=== PATIENT | female | born 1990 | race African-American/Black ===

== ENCOUNTER 2017-04-25 21:45 | Emergency (ER) | payer SELFPAY ==
--- NOTE | 2017-04-25 22:16 | ER Document Report ---
HPI - HPI Pain Level: 4 Context: Patient is a 26-year-old female presents emergency department with chief complaint of vaginal discharge and itching. Patient states that she had sexual intercourse 3 days ago with a partner that she has had STDs from before. States that she used [id number] Monistat with no relief. Also states that she had a Lisa placed about a year ago but that in December her OBGYN did not see the strings, started her on Depo and patient never followed up with [employer] [facility] for removal b/c she lost her insurance. Has an appointment with the Health Dept on Tuesday. Due to her depo, denies regular menses - REPRODUCTIVE Reproductive: REPORTS: : - DERM Skin Color: Normal Past Medical History - Social History Smoking Status: Current Every Day Smoker Frequency of alcohol use: None Drug Abuse: None Family History: Reviewed & Not Pertinent Patient has suicidal ideation: No Patient has homicidal ideation: No - Past Medical History Cardiac Medical History: Denies: Hx Hypertension, Hx Heart Murmur Neurological Medical History: Denies: Hx Cerebrovascular Accident, Hx Seizures Renal/ Medical History: Reports: Hx Kidney Stones. Denies: Hx Peritoneal Dialysis Psychiatric Medical History: Reports: Hx Bipolar Disorder Vertical Provider Document - CONSTITUTIONAL Agree With Documented VS: Yes Notes: PHYSICAL EXAM GENERAL: Alert, interacts well. ABDOMEN: Soft, nondistended, nontender. No guarding, rebound, or rigidity.. Bowel sounds present in all 4 quadrants. FEMALE : Normal external exam. No evidence of lesions, lacerations, bruising or vesicles. Speculum exam normal cervix closed. evidence of white/yellow vaginal discharge with odor. No evidence of lesions. No vaginal bleeding. Bimanual exam normal no cervical motion tenderness. No adnexal mass or adnexal tenderness. EXTREMITIES: Moves all 4 extremities spontaneously. No edema, radial and dorsalis pedis pulses 2/4 bilaterally. No cyanosis. NEUROLOGICAL: Alert and oriented x4. Normal speech. PSYCH: Normal affect, normal mood. SKIN: Warm, dry, normal turgor. No rashes or lesions noted. - INFECTION CONTROL TRAVEL OUTSIDE OF THE [place] IN LAST 30 DAYS: No - RESPIRATORY O2 Sat by Pulse Oximetry: 100 Course - Re-evaluation Re-evalutation: 04/25/17 23:45 Patient is a 26-year-old female is hemodynamically stable, no acute distress and afebrile. STD screening said came back positive for evidence of trichomonas without evidence of yeast. Chlamydia gonorrhea pending at this time. Patient electing for prophylactic treatment. Patient educated on barrier protection such as condoms during sexual activity after pelvic rest for about a week. Patient understands and agrees with plan. Will call her if her results are positive for chlamydia and gonorrhea. Otherwise educated patient to follow-up with the health department on Tuesday for referral to [facility] through their program to have her scope removed. At this time I do not suspect any evidence of PID given the patient's physical exam is benign for any cervical motion tenderness, any pelvic tenderness with stable vital signs. - Vital Signs Vital signs: Temp Pulse Resp BP Pulse Ox 98.5 F 73 16 116/67 100 04/25/17 21:52 04/25/17 21:52 04/25/17 21:52 04/25/17 21:52 04/25/17 21:52 Discharge - Discharge Clinical Impression: STD (female), IUD strings lost Condition: Good Disposition: HOME, SELF-CARE Instructions: Trichomonas Infection ([facility]) Additional Instructions: Please follow-up with the health department with your scheduled appointment on Tuesday regarding today's visit and visualization of your Mario. We were not able to remove it in the ER today. He can follow-up with the health department who may be able to refer you to [facility] with assistance to help have it removed. Referrals: [facility] DEPT,[facility] [NO LOCAL MD] - 04/29/17
[2017-04-25 22:34] LABS: APPEARANCE,URINE SLIGHTLY-CLOUDY; BILIRUBIN,URINE NEGATIVE (NEGATIVE); COLOR,URINE YELLOW; GLUCOSE, URINE NEGATIVE (NEGATIVE); KETONES,URINE NEGATIVE (NEGATIVE); LEUKOCYTE ESTERASE,URINE LARGE (NEGATIVE); NITRITE,URINE NEGATIVE (NEGATIVE); PROTEIN,URINE NEGATIVE (NEGATIVE); URINE SPECIFIC GRAVITY 1.019
[2017-04-25 22:56] LABS: BACTERIA (WET MOUNT) 3+ BACTERIA SEEN; T.VAGINALIS (WET MOUNT) TRICHOMONAS SEEN; WBCS (WET MOUNT) 3+ WBCS SEEN; YEAST (WET MOUNT) NO YEAST SEEN
[2017-04-25] MEDS ORDERED: LIDOCAINE 1% INJ-PF (10 MG/ML) 30 ML SDV INJ ONE (23:28)
[2017-04-25] MEDS ORDERED: AZITHROMYCIN 250 MG TABLET PO ONE (23:28)
[2017-04-25] MEDS ORDERED: CEFTRIAXONE INJ 250 MG VIAL IM ONE (23:28)
[2017-04-25] MEDS ORDERED: METRONIDAZOLE 500 MG TABLET PO ONE (23:28)
--- NOTE | 2017-04-26 00:01 | RADIOLOGY REPORT (SQ) ---
EXAM DESCRIPTION: PELVIS AP CLINICAL HISTORY: 26 years, Female, unknown location of IUD COMPARISON: None. NUMBER OF VIEWS: 1 LIMITATIONS: None. FINDINGS: IUD at the mid pelvis. Else, unremarkable. Bony structures appear intact. IMPRESSION: No acute findings. IUD.
[2017-04-26 00:11] VITALS: BP 121/74
[2017-04-26 00:28] LABS: CHLAM PCR NOT DETECTED (NOT DETECT); GON PCR NOT DETECTED (NOT DETECT)
== END 2017-04-26 00:09 | disposition home or self-care (01) ==
LOC: ER 21:45
DX: A59.00 Urogenital trichomoniasis, unspecified (principal); T83.32XA Displacement of intrauterine contraceptive device, initial encounter; X58.XXXA Exposure to other specified factors, initial encounter; F17.200 Nicotine dependence, unspecified, uncomplicated
CPT/HCPCS: 99284; 96372; 87210; 81025; 81001; 87491; 87591; 72170; J3490; J0696

== ENCOUNTER 2017-06-11 19:33 | Emergency (ER) | payer SELFPAY ==
[2017-06-11 19:38] VITALS: BP 109/66
[2017-06-11 20:28] LABS: COLOR,URINE YELLOW
[2017-06-11 20:29] LABS: APPEARANCE,URINE HAZY; BILIRUBIN,URINE NEGATIVE (NEGATIVE); GLUCOSE, URINE NEGATIVE (NEGATIVE); KETONES,URINE NEGATIVE (NEGATIVE); URINE SPECIFIC GRAVITY 1.027
[2017-06-11 20:30] LABS: LEUKOCYTE ESTERASE,URINE LARGE (NEGATIVE); NITRITE,URINE NEGATIVE (NEGATIVE); PROTEIN,URINE 30 mg/dL (NEGATIVE)
--- NOTE | 2017-06-11 20:57 | ER Document Report ---
ED General - General Chief Complaint: Abdominal Pain Stated Complaint: ABDOMINAL PAIN Time Seen by Provider: 06/11/17 19:48 Notes: Patient is a 26-year-old female without past medical history who presents with going intermittent lower abdominal cramping and concerned that her IUD is unable to be retrieved. Patient states that back in December, her TORPEDO WORKER evaluated this complaint and was unable to locate the strings from her IUD. She was instructed that she would need to have a procedure to have the IUD removed but lost her insurance and was unable to follow-up. She has since that time continued to have intermittent, cramping, mild to moderate pain in her lower abdomen that comes and goes. Nothing improves or worsens this pain. She denies any fever, vaginal discharge, vaginal bleeding, or any other symptoms that are worrisome to her. Nothing is new or different about her symptoms today relative to the past 4-5 months. She was seen in the emergency department in April for the same, referred back to the health department and did not complete her follow-up. TRAVEL OUTSIDE OF THE [place] IN LAST 30 DAYS: No - Related Data Allergies/Adverse Reactions: No Known Allergies Allergy (Unverified 06/30/15 10:48) Past Medical History - General Information source: Patient - Social History Smoking Status: Never Smoker Frequency of alcohol use: None Drug Abuse: None Lives with: Family Family History: Reviewed & Not Pertinent - Past Medical History Cardiac Medical History: Denies: Hx Hypertension, Hx Heart Murmur Neurological Medical History: Denies: Hx Cerebrovascular Accident, Hx Seizures Renal/ Medical History: Reports: Hx Kidney Stones. Denies: Hx Peritoneal Dialysis Psychiatric Medical History: Reports: Hx Bipolar Disorder Review of Systems - Review of Systems Notes: Constitutional: Negative for fever. HENT: Negative for sore throat. Eyes: Negative for visual changes. Cardiovascular: Negative for chest pain. Respiratory: Negative for shortness of breath. Gastrointestinal: Positive for abdominal pain Genitourinary: Negative for dysuria. Musculoskeletal: Negative for back pain. Skin: Negative for rash. Neurological: Negative for headaches, weakness or numbness. 10 point ROS negative except as marked above and in HPI. Physical Exam - Vital signs Vitals: Temp Pulse Resp BP Pulse Ox 98.5 F 108 H 16 109/66 97 06/11/17 19:37 06/11/17 19:37 06/11/17 19:37 06/11/17 19:37 06/11/17 19:37 Interpretation: Normal Notes: PHYSICAL EXAMINATION: GENERAL: Well-appearing, well-nourished and in no acute distress. HEAD: Atraumatic, normocephalic. EYES: Pupils equal round and reactive to light, extraocular movements intact, sclera anicteric, conjunctiva are normal. ENT: nares patent, oropharynx clear without exudates. Moist mucous membranes. NECK: Normal range of motion, supple without lymphadenopathy LUNGS: Breath sounds clear to auscultation bilaterally and equal. No wheezes rales or rhonchi. HEART: Regular rate and rhythm without murmurs ABDOMEN: Soft, nontender, normoactive bowel sounds. No guarding, no rebound. No masses appreciated. EXTREMITIES: Normal range of motion, no pitting or edema. No cyanosis. NEUROLOGICAL: No focal neurological deficits. Moves all extremities spontaneously and on command. PSYCH: Normal mood, normal affect. SKIN: Warm, Dry, normal turgor, no rashes or lesions noted. Course - Re-evaluation Re-evalutation: 06/11/17 20:54 Patient presents with persistent concerns about a IUD which the strings have been unable to be located with for the past 6 months. The patient reports that no provider including her original TORPEDO WORKER has been able to locate the strings or the IUD since December 2016. She presents with concerns that she is continues to have intermittent lower abdominal cramping unchanged over the last 4-5 months. She denies any additional symptoms. She is sleeping when I walked into the room. She has no abdominal tenderness on palpation of her abdomen. Urinalysis unremarkable, she is not . Clinical history and exam are not consistent with pelvic inflammatory disease, acute appendicitis, or any other concerning pathology. She has declined pelvic examination at this time which I think is appropriate given that nothing is new or different today from the past several months. I have again emphasized the patient that she needs to follow-up as directed for definitive management of this issue with TORPEDO WORKER. KUB does verify that the IUD continues to be in the uterus. At this time will discharge with return precautions and follow-up recommendations. Verbal discharge instructions given a the bedside and opportunity for questions given. Medication warnings reviewed. Patient is in agreement with this plan and has verbalized understanding of return precautions and the need for primary care follow-up in the next 24-72 hours. - Vital Signs Vital signs: Temp Pulse Resp BP Pulse Ox 98.5 F 108 H 16 109/66 97 06/11/17 19:37 06/11/17 19:37 06/11/17 19:37 06/11/17 19:37 06/11/17 19:37 - Laboratory Laboratory results interpreted by me: 06/11/17 19:55 Urine Protein 30 H Urine Urobilinogen 8.0 H Ur Leukocyte Esterase LARGE H - Diagnostic Test Radiology reviewed: Image reviewed, Reports reviewed Radiology results interpreted by me: 06/11/17 20:58 KUB: IUD inside the uterus Discharge - Discharge Clinical Impression: Lower abdominal pain IUD migration Qualifiers: Encounter type: initial encounter Qualified Code(s): T83.89XA - Other specified complication of genitourinary prosthetic devices, implants and grafts , initial encounter Condition: Good Disposition: HOME, SELF-CARE Additional Instructions: You do need to follow-up with TORPED[employer] WORKER as your IUD has migrated and this has been a long-standing issue since December where the strings have been unable to be identified on your previous pelvic examinations. There is no emergency department solution to this problem as you may need to have a cervical dilation in the operating room to remove this device. For your pain: Take ibuprofen 600 mg and acetaminophen 1000 mg every 6 hours together as needed for pain. Return if you have for heavy vaginal bleeding, persistent vomiting, worsening pain, fever greater than 100.4F, or any other symptoms that are worrisome to you. Referrals: MILAN MUNOZ MD [ACTIVE STAFF] - Follow up in 3-5 days
--- NOTE | 2017-06-11 21:16 | RADIOLOGY REPORT (SQ) ---
EXAM DESCRIPTION: KUB/ABDOMEN (SINGLE VIEW) COMPLETED DATE/TIME: 06/11/2017 9:02 pm REASON FOR STUDY: eval iud location COMPARISON: None. NUMBER OF VIEWS: One view. TECHNIQUE: Supine radiographic image of the abdomen acquired. LIMITATIONS: None. FINDINGS: BOWEL GAS PATTERN: Normal bowel gas pattern. No dilated loops. CALCIFICATIONS: No suspicious calcifications. SOFT TISSUES: No gross mass or suggestion of organomegaly. An apparent intrauterine device projects within the soft tissues of the bony pelvis. HARDWARE: None in the abdomen. BONES: No acute fracture. No worrisome bone lesions. OTHER: No other significant finding. IMPRESSION: Intrauterine device projects within the soft tissues of the bony pelvis. TECHNICAL DOCUMENTATION: JOB ID: [id number] [employer]- All Rights Reserved Reading location - IP/workstation name: [email or web address]
== END 2017-06-11 21:12 | disposition home or self-care (01) ==
LOC: ER 19:33
DX: T83.89XA Other specified complication of genitourinary prosthetic devices, implants and grafts, initial encounter (principal); R10.30 Lower abdominal pain, unspecified; Y76.8 Miscellaneous obstetric and gynecological devices associated with adverse incidents, not elsewhere classified; Z87.442 Personal history of urinary calculi
CPT/HCPCS: 74018; 81001; 81025; 99284

== ENCOUNTER 2017-07-03 23:22 | Emergency (ER) | payer SELFPAY ==
[2017-07-03 23:54] VITALS: BP 119/78
--- NOTE | 2017-07-04 00:15 | RADIOLOGY REPORT (SQ) ---
EXAM DESCRIPTION: ANKLE RIGHT COMPLETE CLINICAL HISTORY: fell and thinks she sprained ankle COMPARISON: None. FINDINGS: 3 views of the right ankle. No acute fracture or dislocation. Normal osseous mineralization. Tibial plafond and talar dome have normal alignment. Base of the fifth metatarsal is intact. Mild lateral soft tissue edema. IMPRESSION: No acute fracture or dislocation.
--- NOTE | 2017-07-04 00:31 | ER Document Report ---
ED Extremity Problem, Lower - General Mode of Arrival: Ambulatory Information source: Patient TRAVEL OUTSIDE OF THE [place] IN LAST 30 DAYS: No - General Chief Complaint: Ankle Pain Stated Complaint: ANKLE INJURY Time Seen by Provider: 07/04/17 00:15 Notes: Patient is a 26 year old female that presents to the emergency department today with complaints of right ankle pain. Patient states she fell down some stairs which caused the pain. Patient states she tried to go to work today however she works at [email or web address] and she is on her feet all day and she was unable to stand without pain so her risk and insurance manager sent her home. (BERNA DRIVER) - Related Data Allergies/Adverse Reactions: No Known Allergies Allergy (Unverified 06/30/15 10:48) Past Medical History - General Information source: Patient - Social History Smoking Status: Unknown if Ever Smoked Chew tobacco use (# tins/day): No Frequency of alcohol use: Rare Drug Abuse: None Lives with: Family Family History: Reviewed & Not Pertinent Patient has suicidal ideation: No Patient has homicidal ideation: No Renal/ Medical History: Reports: Hx Kidney Stones Psychiatric Medical History: Reports: Hx Bipolar Disorder Surgical Hx: Negative Review of Systems - Review of Systems Constitutional: No symptoms reported EENT: No symptoms reported Cardiovascular: No symptoms reported Respiratory: No symptoms reported Gastrointestinal: No symptoms reported Genitourinary: No symptoms reported Female Genitourinary: No symptoms reported Musculoskeletal: See HPI, Joint pain - right ankle Skin: No symptoms reported Hematologic/Lymphatic: No symptoms reported Neurological/Psychological: No symptoms reported -: Yes All other systems reviewed and negative Physical Exam - Vital signs Vitals: Temp Pulse Resp BP Pulse Ox 98.1 F 88 16 119/78 100 07/03/17 23:53 07/03/17 23:53 07/03/17 23:53 07/03/17 23:53 07/03/17 23:53 - Notes Notes: Physical Exam: General: Alert, appears well. HEENT: Normocephalic. Atraumatic. PERRL. Extraocular movements intact. Oropharynx clear. Neck: Supple. Non-tender. Respiratory: No respiratory distress. Clear and equal breath sounds bilaterally. Cardiovascular: Regular rate and rhythm. Abdominal: Normal Inspection. Non-tender. No distension. Normal Bowel Sounds. Back: Non-tender. No deformity or step off. Extremities: Moves all four extremities. Upper extremities: Normal inspection. Normal ROM. Lower extremities: Swelling and tenderness with palpation over right lateral malleolus. 2+ DP pulses bilaterally. Neurological: Normal cognition. AAOx4. Normal speech. Psychological: Normal affect. Normal Mood. Skin: Warm. Dry. Normal color. (BERNA DRIVER) Course - Re-evaluation Re-evalutation: 07/04/17 00:33 No evidence of fracture or dislocation on x-ray. Patient will be provided anti- inflammatories and follow-up with her primary care physician in the next 2 weeks for reevaluation if symptoms are not improving (MARTINE SON) - Vital Signs Vital signs: Temp Pulse Resp BP Pulse Ox 98.1 F 88 16 119/78 100 07/03/17 23:53 07/03/17 23:53 07/03/17 23:53 07/03/17 23:53 07/03/17 23:53 Discharge - Discharge Clinical Impression: Ankle sprain Qualifiers: Encounter type: initial encounter Involved ligament of ankle: other ligament Laterality: right Qualified Code(s): S93.491A - Sprain of other ligament of right ankle, initial encounter Disposition: HOME, SELF-CARE Instructions: Enoch Wrap ([facility]), Ice & Elevation ([facility]), Sprained Ankle ([facility]) Prescriptions: Naproxen [Naprosyn] 500 mg PO BID #20 tablet Forms: Return to Work Scribe Attestation: 07/11/17 08:01 I personally performed the services described in the documentation, reviewed and edited the documentation which was dictated to the scribe in my presence, and it accurately records my words and actions. (MARTINE SON) Scribe Documentation - Scribe Written by Scribe:: Montana Gomez, [id number] acting as scribe for :: Colt
[2017-07-04] MEDS ORDERED: KETOROLAC TROMETHAMINE 60 MG/2 ML SDV IM ONE (00:36)
== END 2017-07-04 01:14 | disposition home or self-care (01) ==
LOC: ER 23:22
DX: S93.401A Sprain of unspecified ligament of right ankle, initial encounter (principal); W10.9XXA Fall (on) (from) unspecified stairs and steps, initial encounter
CPT/HCPCS: 99283; 96372; 73610; J1885

== ENCOUNTER 2017-08-03 16:30 | Emergency (ER) | payer SELFPAY ==
[2017-08-03 16:50] VITALS: BP 109/67
--- NOTE | 2017-08-03 18:26 | ER Document Report ---
ED Extremity Problem, Lower - General Chief Complaint: Ankle Injury Stated Complaint: ANKLE INJURY Time Seen by Provider: 08/03/17 17:53 Mode of Arrival: Ambulatory Information source: Patient Notes: 26-year-old female presents to ED for complaint of pain to her right ankle for the last week. She states that she sprained her ankle 3 or 4 weeks ago and was seen in the emergency room they wrapped her ankle started to elevate and ice of them follow-up with orthopedics but she was not able to follow-up with orthopedics because she does not have insurance. She states that she could not keep her foot elevated iced or wrapped because the wrapping made it uncomfortable while she worked so she took the wrapping off. She states a week ago 1 of her coworkers stepped on her ankle again now the pain is worse. She is alert and oriented, pupils equal and react to light, speaking in full sentences, respirations regular and unlabored. TRAVEL OUTSIDE OF THE [place] IN LAST 30 DAYS: No - HPI Patient complains to provider of: Injury, Pain Location: Ankle - right Occurred: Other - 3 or 4 weeks ago and then again a week ago Onset/Duration: Gradual Quality of pain: Achy, Throbbing Severity: Moderate Pain Level: 3 Context: Wearing shoes Recent injury: Yes Associated symptoms: Painful ambulation Exacerbated by: Hanging down, Movement, Walking Relieved by: Elevation, Ice, Rest - Related Data Allergies/Adverse Reactions: No Known Allergies Allergy (Verified 08/03/17 16:40) Past Medical History - General Information source: Patient - Social History Smoking Status: Current Every Day Smoker Cigarette use (# per day): Yes - 3-4 cigarettes a day Chew tobacco use (# tins/day): No Smoking Education Provided: Yes - 4 minutes Frequency of alcohol use: Occasional Drug Abuse: None Occupation: [employer] Lives with: Family Family History: Reviewed & Not Pertinent Patient has suicidal ideation: No Patient has homicidal ideation: No - Past Medical History Cardiac Medical History: Reports: None Pulmonary Medical History: Reports: None EENT Medical History: Reports: None Neurological Medical History: Reports: None Endocrine Medical History: Reports: None Renal/ Medical History: Reports: Hx Kidney Stones Malignancy Medical History: Reports: None GI Medical History: Reports: None Musculoskeltal Medical History: Reports Hx Musculoskeletal Trauma Skin Medical History: Reports None Psychiatric Medical History: Reports: Hx Bipolar Disorder Traumatic Medical History: Reports: None Infectious Medical History: Reports: None Surgical Hx: Negative Past Surgical History: Reports: None Review of Systems - Review of Systems Constitutional: No symptoms reported EENT: No symptoms reported Cardiovascular: No symptoms reported Respiratory: No symptoms reported Gastrointestinal: No symptoms reported Genitourinary: No symptoms reported Female Genitourinary: No symptoms reported Musculoskeletal: Ankle swelling - Pain Skin: No symptoms reported Hematologic/Lymphatic: No symptoms reported Neurological/Psychological: No symptoms reported -: Yes All other systems reviewed and negative Physical Exam - Vital signs Vitals: Temp Resp BP 99.1 F 18 109/67 08/03/17 16:48 08/03/17 16:48 08/03/17 16:48 Interpretation: Normal - General General appearance: Appears well, Alert - HEENT Head: Normocephalic, Atraumatic Eyes: Normal Pupils: PERRL - Respiratory Respiratory status: No respiratory distress Chest status: Nontender Breath sounds: Normal Chest palpation: Normal - Cardiovascular Rhythm: Regular Heart sounds: Normal auscultation Murmur: No - Abdominal Inspection: Normal Distension: No distension Bowel sounds: Normal Tenderness: Nontender Organomegaly: No organomegaly - Back Back: Normal, Nontender - Extremities General upper extremity: Normal inspection, Nontender, Normal color, Normal ROM , Normal temperature General lower extremity: Normal inspection, Normal color, Normal temperature. No: Miky's sign Ankle: Tender, Limited ROM - To pain. No: Abrasion, Deformity, Ecchymosis, Edema, Instability, Laceration, Positive Pagan's test, Unable to bear weight Foot: Tender, Metatarsal compress. pain, No evidence of FB. No: Abrasion, Deformity, Ecchymosis, Edema, Instability, Laceration, Nail injury, Navicular tenderness, Tender 5th metatarsal, Unable to bear weight - Neurological Neuro grossly intact: Yes Cognition: Normal Orientation: AAOx4 Kartik Coma Scale Eye Opening: Spontaneous [place] Coma Scale Verbal: Oriented [place] Coma Scale Motor: Obeys Commands Kartik Coma Scale Total: 15 Speech: Normal Motor strength normal: LUE, RUE, LLE, RLE Sensory: Normal - Psychological Associated symptoms: Normal affect, Normal mood - Skin Skin Temperature: Warm Skin Moisture: Dry Skin Color: Normal Course - Re-evaluation Re-evalutation: 08/03/17 19:19 Patient treated with Enoch wrap and crutches. Patient instructed to follow-up with orthopedics. There are no bony changes to the ankle. There is minimal swelling and no bruising noted. Patient did have tenderness. The patient is nontoxic appearing with stable vitals. They are afebrile. Ankle exam shows no deformities with no obvious ligament instability. There is a normal pulse and sensation distally. There is no redness or signs of infection. X-rays show no acute fracture per the radiologist. Patient will be placed in an Enoch wrap for comfort. Crutches will be offered and given if requested. Patient will be instructed to follow-up with not better in 1 week, sooner for increasing pain, fever, redness, numbness, tingling, weakness, any further concerns. Patient will be instructed to rest, ice, elevate their ankle. - Vital Signs Vital signs: Temp Pulse Resp BP Pulse Ox 99.1 F 18 109/67 08/03/17 16:48 08/03/17 16:48 08/03/17 16:48 - Diagnostic Test Radiology reviewed: Image reviewed, Reports reviewed Procedures - Immobilization Right Ankle Time completed: 19:19 Pre-Proc Neuro Vasc Exam: Normal Immobilizer type: Enoch wrap, Crutches Performed by: RN Post-Proc Neuro Vasc Exam: Normal Alignment checked and good: Yes Discharge - Discharge Clinical Impression: Contusion of right ankle Qualifiers: Encounter type: initial encounter Qualified Code(s): S90.01XA - Contusion of right ankle, initial encounter Condition: Stable Disposition: HOME, SELF-CARE Instructions: Use of Ducc-Jsz-Jlctyqi Ibuprofen ([facility]) Additional Instructions: CONTUSION: Your injury has resulted in a contusion -- a crushing of the deep tissues. No injury to important structures was detected during the physician's exam. Contusions vary in the amount of pain they cause, and in the length of time required for healing. Typically, the area will become bruised, and will remain painful to touch for two or three weeks. However, most patients are back to working and playing within a few days. After the initial period of rest and cold-packs, your symptoms (together with the doctor's recommendations) will determine how rapidly you can get back to full activity. Usually this means "do what feels okay, but don't do things that hurt." If re-examination was recommended, it's important to follow up as instructed. Call the doctor or return any time if pain increases, if swelling becomes severe, if you develop numbness or weakness in an injured extremity, or if any other alarming symptoms occur. ENOCH WRAP: A compression dressing (enoch wrap) has been placed. This helps hold the area still. It limits swelling and internal bleeding. The wrap should be comfortably snug -- not tight. You should feel a sense of pressure, but not severe pain under the wrap. Unless the physician tells you otherwise, you can adjust the wrap for comfort. If the wrap causes symptoms suggesting it's too tight -- uncomfortable pressure, swelling or discoloration beyond the wrap, numbness, or severe pain - - you must loosen the wrap. If these symptoms don't resolve promptly, return for re-evaluation. ICE & ELEVATION: Apply ice packs frequently against the painful area. Many different schedules are recommended, such as "20 minutes on, 20 minutes off" or "one hour ice, two hours rest." If you need to work, you may need to go longer between ice treatments. You should plan to have the area ice packed AT LEAST one- fourth of the time. The ice should be applied over the wrap, tape, or splint, or over a layer of cloth -- not directly against the skin. Some ice bags have a built-in cloth and can be put directly on the skin. Your injured part should be elevated as much as possible over the next 48 hours. Try to keep the injury above the level of the heart. Avoid use of the injured area. Elevation and rest will decrease the swelling. USE OF NUDU-FZK-QODDIUP IBUPROFEN: Ibuprofen (Advil, Nuprin, Medipren, Motrin IB) is a medication for fever and pain control. In addition, it has anti- inflammatory effects which may be beneficial, especially in the treatment of injuries. It's best to take ibuprofen with food. Persons with ulcer disease or allergy to aspirin should notify their physician of this before taking ibuprofen. Ibuprofen can be given every four to six hours, for a total of four doses daily. Age Pain or fever dose Antiinflammatory dose 6-8 yr 200 mg (1 tab) 200 mg (1 tab) 9-11 yr 200 mg (1 tab) 200-400 mg (1-2 tab) 11-14 yr 200-400 mg (1-2 tab) 400 mg (2 tab) 15-adult 400 mg (2 tab) 600 mg (3 tab) FOLLOW-UP CARE: If you have been referred to a physician for follow-up care, call the physician s office for an appointment as you were instructed or within the next two days. If you experience worsening or a significant change in your symptoms, notify the physician immediately or return to the Emergency Department at any time for re-evaluation. Forms: Special Work Note, Smoking Cessation Education, Return to Work Referrals: CAITLIN SANCHEZ MD [ACTIVE STAFF] - Follow up as needed
--- NOTE | 2017-08-03 18:45 | RADIOLOGY REPORT (SQ) ---
EXAM DESCRIPTION: ANKLE RIGHT COMPLETE COMPLETED DATE/TIME: 08/03/2017 6:06 pm REASON FOR STUDY: pain and injury COMPARISON: 07/04/2017 NUMBER OF VIEWS: Three views. TECHNIQUE: AP, lateral, and oblique radiographic images acquired of the right ankle. LIMITATIONS: None. FINDINGS: MINERALIZATION: Normal. BONES: No acute fracture or dislocation. No worrisome bone lesions. JOINTS: No effusions. SOFT TISSUES: No soft tissue swelling. No foreign body. OTHER: No other significant finding. IMPRESSION: NEGATIVE STUDY OF THE RIGHT ANKLE. NO RADIOGRAPHIC EVIDENCE OF ACUTE INJURY. TECHNICAL DOCUMENTATION: JOB ID: [id number] [employer]- All Rights Reserved Reading location - IP/workstation name: [email or web address]
== END 2017-08-03 19:33 | disposition home or self-care (01) ==
LOC: ER 16:30
DX: S90.01XA Contusion of right ankle, initial encounter (principal); M25.571 Pain in right ankle and joints of right foot; W51.XXXA Accidental striking against or bumped into by another person, initial encounter; F17.210 Nicotine dependence, cigarettes, uncomplicated
CPT/HCPCS: 99283

== ENCOUNTER 2017-11-04 12:21 | Emergency (ER) | payer SELFPAY ==
[2017-11-04 12:29] VITALS: BP 110/69
[2017-11-04] MEDS ORDERED: IPRATROPIUM/ALBUTEROL 0.5-2.5 MG/3 ML AMPUL NEB ONE (12:59)
[2017-11-04] MEDS ORDERED: PREDNISONE 20 MG TABLET PO ONE (12:59)
--- NOTE | 2017-11-04 13:00 | ER Document Report ---
HPI - HPI Patient complains to provider of: Cough Onset: Other - 5 days Onset/Duration: Persistent Quality of pain: Achy Pain Level: 4 Context: Patient presents complaining of cough and congestion for the past 5 days. Patient denies any fever. Patient has had some wheezing. Patient does report cutting back on smoking recently. Associated Symptoms: Nonproductive cough, Rhinnorhea, Sinus pain/drainage. denies: Fever, Vomiting Exacerbated by: Denies Relieved by: Denies Similar symptoms previously: Yes Recently seen / treated by doctor: No - ROS ROS below otherwise negative: Yes Systems Reviewed and Negative: Yes All other systems reviewed and negative - CONSTITUTIONAL Constitutional: REPORTS: Chills. DENIES: Fever - EENT EENT: REPORTS: Sore Throat - x5 days. DENIES: Ear Pain, Eye problems - NEURO Neurology: REPORTS: Headache. DENIES: Vision blurred, Dizzinesss / Vertigo - CARDIOVASCULAR Cardiovascular: REPORTS: Chest pain - when coughing - RESPIRATORY Respiratory: REPORTS: Coughing. DENIES: Trouble Breathing - GASTROINTESTINAL Gastrointestinal: DENIES: Abdominal Pain, Patient vomiting, Black / Bloody Stools - REPRODUCTIVE Reproductive: DENIES: : - MUSCULOSKELETAL Musculoskeletal: DENIES: Extremity pain - DERM Skin Color: Normal Skin Problems: None Past Medical History - General Information source: Patient - Social History Smoking Status: Current Every Day Smoker Smoking Education Provided: Yes Frequency of alcohol use: None Drug Abuse: None Occupation: Foodservice Family History: Reviewed & Not Pertinent Patient has suicidal ideation: No Patient has homicidal ideation: No - Past Medical History Cardiac Medical History: Denies: Hx Hypertension, Hx Heart Murmur Neurological Medical History: Denies: Hx Cerebrovascular Accident, Hx Seizures Renal/ Medical History: Reports: Hx Kidney Stones. Denies: Hx Peritoneal Dialysis Musculoskeletal Medical History: Reports Hx Musculoskeletal Trauma Psychiatric Medical History: Reports: Hx Bipolar Disorder Surgical Hx: Negative Past Surgical History: Denies: Hx Abdominal Surgery Vertical Provider Document - CONSTITUTIONAL Agree With Documented VS: Yes Exam Limitations: No Limitations General Appearance: WD/WN, No Apparent Distress - INFECTION CONTROL TRAVEL OUTSIDE OF THE [place] IN LAST 30 DAYS: No - HEENT HEENT: Atraumatic, Normocephalic, Pharyngeal Tenderness. negative: Pharyngeal Exudate, Pharyngeal Erythema - NECK Neck: Normal Inspection, Supple. negative: Lymphadenopathy-Left, Lymphadenopathy-Right - RESPIRATORY Respiratory: No Respiratory Distress, Rhonchi, Wheezing - CARDIOVASCULAR Cardiovascular: Regular Rate, Regular Rhythm, No Murmur - BACK Back: Normal Inspection - MUSCULOSKELETAL/EXTREMETIES Musculoskeletal/Extremeties: MAEW - NEURO Level of Consciousness: Awake, Alert, Appropriate Motor/Sensory: No Motor Deficit - DERM Integumentary: Warm, Dry, No Rash Course - Re-evaluation Re-evalutation: 11/04/17 14:02 Patient with good air movement. Scattered wheezing continues. Patient encouraged to refrain from smoking. No concern for pneumonia. Patient nontoxic in appearance. Discussed worsening symptoms that patient should return mainly for. Patient verbalized understanding agrees with plan of care. - Vital Signs Vital signs: Temp Pulse Resp BP Pulse Ox 98.7 F 78 18 110/69 99 11/04/17 12:27 11/04/17 12:27 11/04/17 12:27 11/04/17 12:27 11/04/17 12:27 - Diagnostic Test Radiology reviewed: Reports reviewed Discharge - Discharge Clinical Impression: Wheezing Upper respiratory infection Qualifiers: URI type: unspecified URI Qualified Code(s): J06.9 - Acute upper respiratory infection, unspecified Condition: Stable Disposition: HOME, SELF-CARE Additional Instructions: Return immediately for any new or worsening symptoms Followup with your primary care provider, call tomorrow to make a followup appointment UPPER RESPIRATORY ILLNESS: You have a viral infection of the respiratory passages -- a "cold." This common infection causes nasal congestion, drainage, and often sore throat and cough. It is highly contagious. The disease usually lasts about 10 to 14 days. There is no "cure" for the viral infection -- it must run its course. If there is a complication, such as bacterial infection in the nose, sinuses, middle ear, or bronchial tubes, antibiotics may be required. The antibiotics won't affect the virus. Drink plenty of fluids. A humidifier may help. An expectorant medication or decongestant may make you more comfortable. Use acetaminophen or ibuprofen for fever or aches. See the doctor if fever persists over two days, if there is any significant worsening of your symptoms, or if you simply fail to improve as expected. BRONCHOSPASM: You have tightness in the bronchial tubes, called bronchospasm. This often occurs with bronchial infections. Allergies, inhaled chemicals, and polluted or cold air can also provoke bronchospasm. It's more likely in patients with asthma in the family. Emergency treatment of bronchospasm may include adrenaline shots or bronchodilator aerosol. You may feel lightheaded and have a rapid pulse for an hour or two. Rest and get plenty of fluids. At home, we'll treat you with a bronchodilator inhaler. Antibiotics and corticosteroids may be required for some patients. Until you recover, avoid chemical fumes, dusts, pollens, and exercising in very cold or dry air. If you smoke, stop now!! If you develop a fever, increased wheezing, chest pain, or severe shortness of breath, you should contact the doctor immediately. INHALED BRONCHODILATORS: You have received a treatment of and/or prescription for an inhaled bronchodilator -- a medication which stimulates the airways in the lung to dilate. This improves the flow of air in asthma, bronchitis, and emphysema. These medicines have some similarity to adrenaline, and can cause similar side effects: shakiness, racing heart, and a sense of nervousness. These side effects decrease with time. Contact your doctor if these side effects are severe. Do not over-use the medicine. Too-frequent use of the inhaler may make it ineffective. Call your doctor if the inhaler is not controlling your symptoms at the prescribed doses. STEROID MEDICATION: You have been given an injection of or oral medicine of the cortisone/ steroid class. This medication is used to control inflammation or allergy. Baldo t is usually only given for a short period of time, until the acute process subsides. There are usually no side effects from short-term use of cortisone-like medications. Some persons feel an increased sense of well-being and are not sleepy at bedtime. Long-term use of cortisone medications is best avoided, unless required for a severe condition. If your condition does not remit, or relapses after the course of corticosteroid medication, you should consult your physician. USE OF ACETAMINOPHEN (Tylenol): Acetaminophen may be taken for pain relief or fever control. It's much safer than aspirin, offering a wider range of "safe" dosages. It is safe during . Some brand names are Tylenol, Panadol, Datril, Anacin 3, Tempra, and Liquiprin. Acetaminophen can be repeated every four hours. The following are maximum recommended dosages: >89 pounds or adults 650 mg to 900 mg Acetaminophen can be repeated every four hours. Maximum dose not to exceed 4000 mg a day. SMOKING: If you smoke, you should stop smoking. The tar and chemicals in cigarette smoke are harmful. Smoking has been shown to cause: emphysema chronic bronchitis lung cancer mouth and throat cancer stomach and pancreas cancer premature aging defects In addition, smoking increases ear and lung infections in children of smokers. FOLLOW-UP CARE: If you have been referred to a physician for follow-up care, call the physician s office for an appointment as you were instructed or within the next two days. If you experience worsening or a significant change in your symptoms, notify the physician immediately or return to the Emergency Department at any time for re-evaluation. Prescriptions: Albuterol Sulfate [Ventolin Hfa] 2 puff IH Q4HP PRN #17 gm PRN Reason: Prednisone [Deltasone 20 mg Tablet] 3 tab PO DAILY 4 Days tablet Forms: Smoking Cessation Education Referrals: [facility] [Provider Group] - Follow up as needed [facility] [Provider Group] - Follow up as needed
--- NOTE | 2017-11-04 13:31 | RADIOLOGY REPORT (SQ) ---
EXAM DESCRIPTION: CHEST 2 VIEWS COMPLETED DATE/TIME: 11/04/2017 1:12 pm REASON FOR STUDY: cough COMPARISON: None. EXAM PARAMETERS: NUMBER OF VIEWS: two views TECHNIQUE: Digital Frontal and Lateral radiographic views of the chest acquired. RADIATION DOSE: NA LIMITATIONS: none FINDINGS: LUNGS AND PLEURA: No opacities, masses or pneumothorax. No pleural effusion. MEDIASTINUM AND HILAR STRUCTURES: No masses or contour abnormalities. HEART AND VASCULAR STRUCTURES: Heart normal size. No evidence for failure. BONES: No acute findings. HARDWARE: None in the chest. OTHER: No other significant finding. IMPRESSION: NO ACUTE RADIOGRAPHIC FINDING IN THE CHEST. TECHNICAL DOCUMENTATION: JOB ID: [id number] [employer]- All Rights Reserved Reading location - IP/workstation name: [email or web address]
[2017-11-04] MEDS ORDERED: ALBUTEROL SULFATE 0.083% NEB 2.5 MG/3 ML AMPUL NEB ONE (14:02)
== END 2017-11-04 14:10 | disposition home or self-care (01) ==
LOC: ER 12:21
DX: J06.9 Acute upper respiratory infection, unspecified (principal); R05 Cough; R06.2 Wheezing; J34.89 Other specified disorders of nose and nasal sinuses; R68.83 Chills (without fever); R51 Headache; J02.9 Acute pharyngitis, unspecified; F17.200 Nicotine dependence, unspecified, uncomplicated
CPT/HCPCS: 94640 ×2; 99283; 71046; J7512; J7620

== ENCOUNTER 2018-03-27 10:17 | Emergency (ER) | payer SELFPAY ==
[2018-03-27 10:25] VITALS: BP 104/60
[2018-03-27] MEDS ORDERED: PREDNISONE 20 MG TABLET PO ONE (10:58)
[2018-03-27] MEDS ORDERED: LIDOCAINE 1% INJ-PF (10 MG/ML) 30 ML SDV INJ ONE (10:58)
[2018-03-27] MEDS ORDERED: LIDOCAINE 1% INJ-PF (10 MG/ML) 30 ML SDV ONE (10:58)
[2018-03-27] MEDS ORDERED: IPRATROPIUM/ALBUTEROL 0.5-2.5 MG/3 ML AMPUL NEB ONE (10:58)
[2018-03-27] MEDS ORDERED: BENZONATATE 100 MG CAPSULE PO ONE (10:59)
--- NOTE | 2018-03-27 11:05 | ER Document Report ---
ED Respiratory Problem - General Chief Complaint: Asthma Exacerbation Stated Complaint: SORE THROAT Time Seen by Provider: 03/27/18 10:52 Mode of Arrival: Ambulatory Information source: [facility] Records Notes: 27-year-old female patient comes emergency room complaining of cough, nosebleeds, coughing up blood, shortness of breath. She traveled to [place] recently and returned 3 days ago. She had run out of her inhaler. She has a dry harsh cough. She has noticed in the evenings or during the night that she has some nosebleeds, and in the morning will cough up some blood. It is turned very cold here the past several days and people are now heating their homes and causing there to become quite dry. TRAVEL OUTSIDE OF THE [place] IN LAST 30 DAYS: No - Related Data Allergies/Adverse Reactions: No Known Allergies Allergy (Verified 08/03/17 16:40) Past Medical History - General Information source: Patient, [facility] Records - Social History Smoking Status: Current Every Day Smoker Cigarette use (# per day): Yes Chew tobacco use (# tins/day): No Smoking Education Provided: No Frequency of alcohol use: Occasional Drug Abuse: None Lives with: Family Family History: Reviewed & Not Pertinent Patient has suicidal ideation: No Patient has homicidal ideation: No Pulmonary Medical History: Reports: Hx Asthma Renal/ Medical History: Reports: Hx Kidney Stones Musculoskeletal Medical History: Reports Hx Musculoskeletal Trauma Psychiatric Medical History: Reports: Hx Bipolar Disorder Surgical Hx: Negative Review of Systems - Review of Systems Constitutional: No symptoms reported EENT: Other - Nosebleeds during the night Cardiovascular: No symptoms reported Respiratory: Cough, Hemoptysis, Wheezing Gastrointestinal: No symptoms reported Genitourinary: No symptoms reported Musculoskeletal: No symptoms reported Skin: No symptoms reported Hematologic/Lymphatic: No symptoms reported Neurological/Psychological: No symptoms reported Physical Exam - Vital signs Vitals: Temp Pulse Resp BP Pulse Ox 98.9 F 77 16 104/60 100 03/27/18 10:24 03/27/18 10:24 03/27/18 10:24 03/27/18 10:24 03/27/18 10:24 - Notes Notes: PHYSICAL EXAMINATION: GENERAL: Well-appearing, well-nourished and in no acute distress. HEAD: Atraumatic, normocephalic. EYES: Pupils equal round and reactive to light, extraocular movements intact, sclera anicteric, conjunctiva are normal. ENT: nares patent, oropharynx clear without exudates. Moist mucous membranes. TMs are clear and a little retracted. NECK: Normal range of motion, supple without lymphadenopathy LUNGS: Frequent dry, harsh cough with faint wheezes heard on auscultation HEART: Regular rate and rhythm without murmurs ABDOMEN: Soft, nontender, normoactive bowel sounds. No guarding, no rebound. No masses appreciated. EXTREMITIES: Normal range of motion, no pitting or edema. No cyanosis. NEUROLOGICAL: Cranial nerves grossly intact. Normal speech, normal gait. Normal sensory, motor, and reflex exams. PSYCH: Normal mood, normal affect. SKIN: Warm, Dry, normal turgor, no rashes or lesions noted. Course - Re-evaluation Re-evalutation: 03/27/18 11:48 Patient states she can tell a difference after the breathing treatment with lidocaine and and she does not feel the urge to cough for the discomfort at this time. - Vital Signs Vital signs: Temp Pulse Resp BP Pulse Ox 98.9 F 77 16 104/60 100 03/27/18 10:24 03/27/18 10:24 03/27/18 10:24 03/27/18 10:24 03/27/18 10:24 Discharge - Discharge Clinical Impression: Bronchitis, Epistaxis Asthma Qualifiers: Asthma severity: mild Asthma persistence: intermittent Asthma complication type: uncomplicated Qualified Code(s): J45.20 - Mild intermittent asthma, uncomplicated Condition: Stable Disposition: HOME, SELF-CARE Additional Instructions: Bronchitis You have acute bronchitis. This disease is an infection or inflammation of the air passageways in your lungs. Symptoms usually include cough, low grade fever, shortness of breath, and wheezing. The cough usually persists for a couple of weeks. Most cases of bronchitis get better without antibiotics. We prescribe antibiotics when we believe bacteria are damaging your airways, or if there's high risk the bronchitis will worsen into pneumonia. Increase your fluid intake. A cool mist humidifier may make your lungs more comfortable. An expectorant (cough medicine that loosens phlegm) can help. If you smoke, STOP!!! Recovery from bronchitis can be somewhat slow, but you should see improvement within a day or two. Repeated episodes of bronchitis may result in lung damage -- for example, chronic bronchitis, recurrent pneumonias, or emphysema. Call the doctor if you develop increasing fever, shortness of breath, chest pain, bloody sputum, or otherwise worsen. If you have not improved at all after several days, contact the physician. * Take medications as prescribed. Start the prednisone tomorrow. Drink plenty of fluids throughout the day in the evening. Put Vaseline into each nostril at bedtime and 1-2 times during the day. This will help reduce the nosebleeds you are experiencing. Follow-up with a local medical doctor if not improving. RETURN TO THE EMERGENCY ROOM IF ANY NEW OR WORSENING SYMPTOMS. Prescriptions: Benzonatate [Tessalon Perles 100 mg Capsule] 100 mg PO Q8HP PRN #25 capsule PRN Reason: Cough Albuterol Sulfate [Proair Hfa Inhalation Aerosol 8.5 gm Mdi] 2 puff IH ASDIR PRN #1 mdi PRN Reason: Prednisone [Deltasone 10 mg Tablet] 10 mg PO ASDIR PRN #21 tablet PRN Reason:
== END 2018-03-27 11:52 | disposition home or self-care (01) ==
LOC: ER 10:17
DX: J45.20 Mild intermittent asthma, uncomplicated (principal); R04.0 Epistaxis; R04.2 Hemoptysis; R06.02 Shortness of breath; F17.210 Nicotine dependence, cigarettes, uncomplicated
CPT/HCPCS: 94640; 99284; J3490; J7512; J7620

== ENCOUNTER 2018-05-03 15:49 | Emergency (ER) | payer OTHER ==
[2018-05-03 15:57] VITALS: BP 121/80
[2018-05-03] MEDS ORDERED: CYCLOBENZAPRINE HCL 10 MG TABLET PO ONE (17:02)
[2018-05-03] MEDS ORDERED: IBUPROFEN 600 MG TABLET PO ONE (17:02)
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
== END 2018-05-03 17:17 | disposition home or self-care (01) ==
LOC: ER 15:49
DX: S16.1XXA Strain of muscle, fascia and tendon at neck level, initial encounter (principal); S09.90XA Unspecified injury of head, initial encounter; V43.62XA Car passenger injured in collision with other type car in traffic accident, initial encounter; J45.909 Unspecified asthma, uncomplicated; F17.210 Nicotine dependence, cigarettes, uncomplicated; Z71.6 Tobacco abuse counseling
CPT/HCPCS: 99284; 99406

== ENCOUNTER 2018-06-22 23:28 | Emergency (ER) | payer SELFPAY ==
[2018-06-23 02:06] LABS: APPEARANCE,URINE SLIGHTLY-CLOUDY; BILIRUBIN,URINE NEGATIVE (NEGATIVE); COLOR,URINE YELLOW; GLUCOSE, URINE NEGATIVE (NEGATIVE); KETONES,URINE NEGATIVE (NEGATIVE); LEUKOCYTE ESTERASE,URINE LARGE (NEGATIVE); NITRITE,URINE NEGATIVE (NEGATIVE); PROTEIN,URINE NEGATIVE (NEGATIVE); URINE SPECIFIC GRAVITY 1.013
[2018-06-23 03:23] LABS: T.VAGINALIS (WET MOUNT) NO TRICHOMONAS SEEN; WBCS (WET MOUNT) 1+ WBCS SEEN; YEAST (WET MOUNT) NO YEAST SEEN
[2018-06-23 03:24] LABS: BACTERIA (WET MOUNT) 3+ BACTERIA SEEN; EPITHELIALS (WET MOUNT) 3+ EPITHELIALS SEEN; RBCS (WET MOUNT) NO RBCS SEEN
[2018-06-23] MEDS ORDERED: METRONIDAZOLE 500 MG TABLET PO ONE (03:31)
[2018-06-23 03:43] VITALS: BP 107/80
[2018-06-23 04:48] LABS: CHLAM PCR NOT DETECTED (NOT DETECT); GON PCR NOT DETECTED (NOT DETECT)
--- NOTE | 2018-06-23 04:58 | ER Document Report ---
ED General - General Chief Complaint: Vaginal Discharge Stated Complaint: VAGINAL DISCHARGE Time Seen by Provider: 06/23/18 02:08 Notes: Patient is a 27-year-old female without chronic medical problems who presents with 2-3 days of vaginal discharge. Patient states that symptoms started gradually, have been worsening since onset. Regardless is being severe. Nothing seems to improve or worsen symptoms. Denies history of similar symptoms in the past. Denies concerns for sexually transmitted infections. She is sexually active in a monogamous relationship. No abdominal pain, fever or constitutional symptoms. 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 TRAVEL OUTSIDE OF THE [place] IN LAST 30 DAYS: No - Related Data Allergies/Adverse Reactions: No Known Allergies Allergy (Verified 05/03/18 15:50) Past Medical History - General Information source: Patient - Social History Smoking Status: Current Every Day Smoker Chew tobacco use (# tins/day): No Frequency of alcohol use: None Drug Abuse: None Lives with: Spouse/Significant other Family History: Reviewed & Not Pertinent Patient has suicidal ideation: No Patient has homicidal ideation: No - Past Medical History Cardiac Medical History: Denies: Hx Hypertension, Hx Heart Murmur Pulmonary Medical History: Reports: Hx Asthma Neurological Medical History: Denies: Hx Cerebrovascular Accident, Hx Seizures Renal/ Medical History: Reports: Hx Kidney Stones. Denies: Hx Peritoneal Dialysis Musculoskeletal Medical History: Reports Hx Musculoskeletal Trauma Psychiatric Medical History: Reports: Hx Bipolar Disorder Traumatic Medical History: Reports: Hx Fractures - Left fourth toe Past Surgical History: Denies: Hx Abdominal Surgery - Immunizations Immunizations up to date: No Review of Systems - Review of Systems Notes: Constitutional: Negative for fever. HENT: Negative for sore throat. Eyes: Negative for visual changes. Cardiovascular: Negative for chest pain. Respiratory: Negative for shortness of breath. Gastrointestinal: Negative for abdominal pain, vomiting or diarrhea. Genitourinary: Positive for vaginal discharge Musculoskeletal: Negative for back pain. Skin: Negative for rash. Neurological: Negative for headaches, weakness or numbness. 10 point ROS negative except as marked above and in HPI. Physical Exam - Vital signs Vitals: Temp Pulse Resp BP Pulse Ox 98.4 F 70 20 109/69 99 06/22/18 23:37 06/22/18 23:37 06/22/18 23:37 06/22/18 23:37 06/22/18 23:37 Interpretation: Normal Notes: PHYSICAL EXAMINATION: GENERAL: Well-appearing, well-nourished and in no acute distress. HEAD: Atraumatic, normocephalic. EYES: Pupils equal round and reactive to light, extraocular movements intact, sclera anicteric, conjunctiva are normal. ENT: nares patent, oropharynx clear without exudates. Moist mucous membranes. NECK: Normal range of motion, supple without lymphadenopathy LUNGS: Breath sounds clear to auscultation bilaterally and equal. No wheezes rales or rhonchi. HEART: Regular rate and rhythm without murmurs ABDOMEN: Soft, nontender, normoactive bowel sounds. No guarding, no rebound. No masses appreciated. moderately thick, white vaginal discharge. No cervical motion tenderness. No adnexal tenderness. EXTREMITIES: Normal range of motion, no pitting or edema. No cyanosis. NEUROLOGICAL: No focal neurological deficits. Moves all extremities spontaneously and on command. PSYCH: Normal mood, normal affect. SKIN: Warm, Dry, normal turgor, no rashes or lesions noted. Course - Re-evaluation Re-evalutation: 06/23/18 04:56 Presentation is most consistent with bacterial vaginosis. Examination is without evidence of cervical motion tenderness, adnexal tenderness, no abdominal tenderness. Do not suspect tubo-ovarian abscess, gonorrhea, chlamydia, or pelvic inflammatory disease. Vitals within normal limits. Wet mount does demonstrate bacteria and white blood cells. Patient will be started on metronidazole. At this time will discharge with return precautions and follow- up recommendations. Verbal discharge instructions given a the bedside and opportunity for questions given. Medication warnings reviewed. Patient is in agreement with this plan and has verbalized understanding of return precautions and the need for primary care follow-up in the next 24-72 hours. - Vital Signs Vital signs: Temp Pulse Resp BP Pulse Ox 98.4 F 68 16 107/80 100 06/22/18 23:37 06/23/18 03:43 06/23/18 03:43 06/23/18 03:43 06/23/18 03:43 - Laboratory Laboratory results interpreted by me: 06/23/18 00:45 Urine Blood SMALL H Urine Urobilinogen 2.0 H Ur Leukocyte Esterase LARGE H Discharge - Discharge Clinical Impression: Bacterial vaginosis Condition: Good Disposition: HOME, SELF-CARE Additional Instructions: You have an overgrowth of natural vaginal bacteria, called bacterial vaginosis. You are being treated with an antibiotic called metronidazole. Do not drink alcohol while taking this medication. Complete all of the antibiotic even if your symptoms have resolved. Return for abdominal pain, vomiting, fever of greater than 101F, or any other symptoms that are worrisome to you. Please follow-up with your ED SPECIAL EDUCATION TEACHER or primary care doctor as needed. Prescriptions: Metronidazole [Flagyl 500 mg Tablet] 500 mg PO Q6H #28 tablet
== END 2018-06-23 03:43 | disposition home or self-care (01) ==
LOC: ER 23:28
DX: N76.0 Acute vaginitis (principal); B96.89 Other specified bacterial agents as the cause of diseases classified elsewhere; F17.200 Nicotine dependence, unspecified, uncomplicated; J45.909 Unspecified asthma, uncomplicated
CPT/HCPCS: 36415; 81001; 81025; 87210; 87491; 87591; 99283

== ENCOUNTER 2018-10-04 11:15 | Emergency (ER) | payer SELFPAY ==
--- NOTE | 2018-10-04 11:32 | ER Document Report ---
ED Medical Screen (RME) - General Chief Complaint: Abdominal Pain Stated Complaint: ABDOMINAL PAIN Time Seen by Provider: 10/04/18 11:26 Mode of Arrival: Ambulatory Information source: Patient Notes: 28-year-old female presented to ED for complaint of bilateral pelvic pain. She states she has an IUD in the last time she was in the emergency room they did x- rays and told her it was out of place. She states she went to the health department and they were not able to reach the ED. She states she is not sure what they plan for her with this IUD. She states that the pain is like a pinching sometimes it is not a real sharp and other times it is very sharp. She states it is worse when she moves. She states she does have a history of asthma she smokes 3 cigarettes a day and drinks weekly. 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 She is alert oriented respirations regular and unlabored speaking in full sentences. She states she does not have any pain or discomfort with urination. I have greeted and performed a rapid initial assessment of this patient. A comprehensive ED assessment and evaluation of the patient, analysis of test results and completion of medical decision making process will be conducted by an additional ED providers. Dictation of this chart was performed using voice recognition software; therefore, there may be some unintended grammatical errors. TRAVEL OUTSIDE OF THE [place] IN LAST 30 DAYS: No - Related Data Allergies/Adverse Reactions: No Known Allergies Allergy (Verified 10/04/18 11:16) Past Medical History - Past Medical History Cardiac Medical History: Denies: Hx Hypertension, Hx Heart Murmur Pulmonary Medical History: Reports: Hx Asthma Neurological Medical History: Denies: Hx Cerebrovascular Accident, Hx Seizures Renal/ Medical History: Reports: Hx Kidney Stones. Denies: Hx Peritoneal Dialysis Musculoskeltal Medical History: Reports Hx Musculoskeletal Trauma Psychiatric Medical History: Reports: Hx Bipolar Disorder Traumatic Medical History: Reports: Hx Fractures - Left fourth toe Past Surgical History: Denies: Hx Abdominal Surgery - Immunizations Immunizations up to date: No Physical Exam - Vital signs Vitals: Temp Pulse Resp BP Pulse Ox 98.8 F 85 16 115/78 99 10/04/18 11:24 10/04/18 11:24 10/04/18 11:24 10/04/18 11:24 10/04/18 11:24 Course - Vital Signs Vital signs: Temp Pulse Resp BP Pulse Ox 98.8 F 85 16 115/78 99 10/04/18 11:24 10/04/18 11:24 10/04/18 11:24 10/04/18 11:24 10/04/18 11:24
[2018-10-04 11:59] LABS: BACTERIA (WET MOUNT) 4+ BACTERIA SEEN; EPITHELIALS (WET MOUNT) 4+ EPITHELIALS SEEN; T.VAGINALIS (WET MOUNT) NO TRICHOMONAS SEEN; WBCS (WET MOUNT) RARE WBCS SEEN; YEAST (WET MOUNT) NO YEAST SEEN
[2018-10-04 12:00] LABS: APPEARANCE,URINE SLIGHTLY-CLOUDY; BILIRUBIN,URINE NEGATIVE (NEGATIVE); COLOR,URINE YELLOW; GLUCOSE, URINE NEGATIVE (NEGATIVE); KETONES,URINE NEGATIVE (NEGATIVE); LEUKOCYTE ESTERASE,URINE NEGATIVE (NEGATIVE); NITRITE,URINE NEGATIVE (NEGATIVE); PROTEIN,URINE 30 mg/dL (NEGATIVE); URINE SPECIFIC GRAVITY 1.025; UROBILINOGEN,URINE NEGATIVE mg/dL (<2.0)
--- NOTE | 2018-10-04 12:24 | RADIOLOGY REPORT (SQ) ---
EXAM DESCRIPTION: U/S NON-OB PELVIS TV W/O DOP COMPLETED DATE/TIME: 10/04/2018 12:11 pm REASON FOR STUDY: Pelvic pain states IUD out of place COMPARISON: 04/25/2017 x-ray TECHNIQUE: Dynamic and static grayscale images acquired of the pelvis via transvaginal approach and recorded on PACS. Additional selected color Doppler and spectral images recorded. LIMITATIONS: None. FINDINGS: UTERUS: Contour normal. No mass. ENDOMETRIAL STRIPE: Linear echogenic structure visualize within the endometrial canal compatible with a intrauterine device. CERVIX: No nabothian cysts. RIGHT OVARY AND DOPPLER: Normal size. No worrisome masses. Normal arterial vascular flow without evid ence for torsion. LEFT OVARY AND DOPPLER: Normal size. No worrisome masses. Normal arterial vascular flow without evide nce for torsion. FREE FLUID: None noted. OTHER: No other significant finding. MEASUREMENTS: UTERUS: Unremarkable in size measuring 7.7 x 4.9 x 3.8 cm ENDOMETRIAL STRIPE: IUD within the endometrial canal. No focal thickening. RIGHT OVARY: 4.1 x 3.5 x 1.6 cm LEFT OVARY: 2.9 x 2.1 x 1.9 cm IMPRESSION: Intrauterine device visualized within the endometrial canal. Otherwise, unremarkable pelvic ultrasound. TECHNICAL DOCUMENTATION: JOB ID: [id number] [employer]- All Rights Reserved Reading location - IP/workstation name: [email or web address]
[2018-10-04 13:25] LABS: CHLAM PCR NOT DETECTED (NOT DETECT)
[2018-10-04] MEDS ORDERED: KETOROLAC TROMETHAMINE 60 MG/2 ML SDV IM ONE (14:20)
--- NOTE | 2018-10-04 14:32 | ER Document Report ---
ED General - General Chief Complaint: Abdominal Pain Stated Complaint: ABDOMINAL PAIN Time Seen by Provider: 10/04/18 11:26 Mode of Arrival: Ambulatory TRAVEL OUTSIDE OF THE [place] IN LAST 30 DAYS: No - HPI Notes: 28-year-old female to the emergency department with complaints of pelvic pain that has been on off and on for the past 2 days. She states that it is sharp in nature and cramping. She states that she feels better when she lays in a position and draws her knees up to her chest. She admits to some associated nausea but denies any vomiting. She denies any vaginal discharge, vaginal bleeding, back pain, urinary complaints, fevers, chills, chest pain, shortness of breath. She states that she has a Lisa IUD that was placed about 3 years ago. She states that she has had difficulty with this IUD in the past and was supposed to have it removed through [facility] but they could not find the strings. She was placed on Depo with the presumption that her IUD had come out. She states that she has had off-and-on pelvic pain since. She states that she attempted to follow-up with [facility] but she lost her Medicaid and cannot afford to pay to be seen. She has been seen at the health department and they have been administering her Depo shots. They are willing to aid in removal of IUD but were requiring an ultrasound first. She states that she has not had an ultrasound with them. She states that since her pain got worse in the past 2 days, she decided to seek medical attention at the ER. She is sexually active with one partner and she is not concerned for STDs. She has had trichomonas in the past. She denies chance for . - Related Data Allergies/Adverse Reactions: No Known Allergies Allergy (Verified 10/04/18 11:16) Past Medical History - General Information source: Patient - Social History Smoking Status: Current Every Day Smoker Frequency of alcohol use: Social Drug Abuse: None Family History: Reviewed & Not Pertinent Patient has suicidal ideation: No Patient has homicidal ideation: No - Past Medical History Cardiac Medical History: Denies: Hx Hypertension, Hx Heart Murmur Pulmonary Medical History: Reports: Hx Asthma Neurological Medical History: Denies: Hx Cerebrovascular Accident, Hx Seizures Renal/ Medical History: Reports: Hx Kidney Stones. Denies: Hx Peritoneal Dialysis Musculoskeletal Medical History: Reports Hx Musculoskeletal Trauma Psychiatric Medical History: Reports: Hx Bipolar Disorder Traumatic Medical History: Reports: Hx Fractures - Left fourth toe Past Surgical History: Denies: Hx Abdominal Surgery - Immunizations Immunizations up to date: No Review of Systems - Review of Systems Constitutional: denies: Chills, Diaphoresis, Fever EENT: denies: No symptoms reported Cardiovascular: denies: Chest pain, Palpitations, Syncope, Dizziness, Lightheaded Respiratory: denies: Cough, Short of breath Gastrointestinal: Abdominal pain, Nausea. denies: Diarrhea, Vomiting Genitourinary: No symptoms reported. denies: Frequency, Flank pain Female Genitourinary: Other - Pelvic pain. denies: Heavy/abnormal periods, Irregular period, Vaginal discharge, Vaginal bleeding Musculoskeletal: No symptoms reported Skin: No symptoms reported Neurological/Psychological: No symptoms reported -: Yes All other systems reviewed and negative Physical Exam - Vital signs Vitals: Temp Pulse Resp BP Pulse Ox 98.8 F 85 16 115/78 99 10/04/18 11:24 10/04/18 11:24 10/04/18 11:24 10/04/18 11:24 10/04/18 11:24 Interpretation: Normal - General General appearance: Appears well, Alert - HEENT Head: Normocephalic, Atraumatic Eyes: Normal Pupils: PERRL - Respiratory Respiratory status: No respiratory distress Chest status: Nontender Breath sounds: Normal Chest palpation: Normal - Cardiovascular Rhythm: Regular Heart sounds: Normal auscultation Murmur: No - Abdominal Inspection: Normal Distension: No distension Bowel sounds: Normal Tenderness: Tender - Tenderness to palpation over the suprapubic abdomen. Negative right lower quadrant tenderness. Negative McBurney's point, negative Fletcher sign, negative guarding, negative rebound. No CVA tenderness Organomegaly: No organomegaly - Back Back: No: CVA tenderness - Neurological Neuro grossly intact: Yes Cognition: Normal Orientation: AAOx4 Marcus Coma Scale Eye Opening: Spontaneous Marcus Coma Scale Verbal: Oriented Marcus Coma Scale Motor: Obeys Commands Marcus Coma Scale Total: 15 Speech: Normal Motor strength normal: LUE, RUE, LLE, RLE Sensory: Normal - Psychological Associated symptoms: Normal affect, Normal mood - Skin Skin Temperature: Warm Skin Moisture: Dry Skin Color: Normal Course - Re-evaluation Re-evalutation: 10/04/18 14:27 Impression: Pelvic pain, worse in the past 2 days, but has been off and on for over a year. Noted ultrasound with Lisa IUD in the endometrial canal. Urinal ysis is negative for UTI, noted BV on wet mount, no trichomonas, gonorrhea and chlamydia are not detected. Recent pelvic exam to get a but she has declined. We will give a dose of IM Toradol for her pain. She states that if the ultrasound could be sent over to the health department she will follow-up with them and have the IUD removed through the health department. Patient to return if she has any worsening symptoms such as fever, worsening pain, intractable vomiting, or any other concerning symptoms. - Vital Signs Vital signs: Temp Pulse Resp BP Pulse Ox 98.8 F 85 16 115/78 99 10/04/18 11:24 10/04/18 11:24 10/04/18 11:24 10/04/18 11:24 10/04/18 11:24 - Laboratory Laboratory results interpreted by me: 10/04/18 11:48 Urine Protein 30 H Urine Blood MODERATE H 10/04/18 14:32 Laboratory 10/04/18 10/04/18 10/04/18 11:34 11:34 11:48 Urine Color YELLOW Urine Appearance SLIGHTLY-CLOUDY Urine pH 6.0 Ur Specific [place] 1.025 Urine Protein 30 H Urine Glucose (UA) NEGATIVE Urine Ketones NEGATIVE Urine Blood MODERATE H Urine Nitrite NEGATIVE Urine Bilirubin NEGATIVE Urine Urobilinogen NEGATIVE Ur Leukocyte Esterase NEGATIVE Urine WBC (Auto) 2 Urine RBC (Auto) 11 Squamous Epi Cells Auto 6 Urine Mucus (Auto) MANY Urine Ascorbic Acid NEGATIVE Urine HCG, Qual NEGATIVE Epi Cells (Wet Prep) 4+ EPITHELIALS SEEN Bacteria (Wet Prep) 4+ BACTERIA SEEN Trichomonas (Wet Prep) NO TRICHOMONAS SEEN Vaginal WBC RARE WBCS SEEN Vaginal Yeast NO YEAST SEEN Chlamydia DNA (PCR) NOT DETECTED N.gonorrhoeae DNA (PCR) NOT DETECTED - Diagnostic Test Radiology reviewed: Image reviewed, Reports reviewed Discharge - Discharge Clinical Impression: Pelvic pain, IUD (intrauterine device) in place, Bacterial vaginosis Condition: Stable Disposition: HOME, SELF-CARE Instructions: Pelvic Pain ([facility]), Vaginosis, Bacterial ([facility]) Additional Instructions: FOLLOW UP WITH HEALTH DEPARTMENT FOR FURTHER MANAGEMENT OF YOUR IUD. RETURN IF WORSENING PAIN, FEVERS, INTRACTABLE VOMITING, OR ANY OTHER CONCERNS. PUSH FLUIDS. COMPLETE ANTIBIOTICS FOR TREATMENT OF BACTERIAL VAGINOSIS. Prescriptions: Metronidazole [Flagyl 500 mg Tablet] 500 mg PO BID #14 tablet [facility] - Follow up tomorrow
[2018-10-04 14:43] VITALS: BP 112/71
== END 2018-10-04 14:59 | disposition home or self-care (01) ==
LOC: ER 11:15
DX: N76.0 Acute vaginitis (principal); B96.89 Other specified bacterial agents as the cause of diseases classified elsewhere; R10.2 Pelvic and perineal pain; R11.0 Nausea; F17.200 Nicotine dependence, unspecified, uncomplicated; J45.909 Unspecified asthma, uncomplicated; Z97.5 Presence of (intrauterine) contraceptive device; Z79.3 Long term (current) use of hormonal contraceptives; Z87.442 Personal history of urinary calculi
CPT/HCPCS: 99284; 96374; 87086; 87210; 81025; 81001; 87491; 87591; 76830; J1885

== ENCOUNTER → 2019-04-19 | Outpatient (CLI) | payer OTHER ==
[2019-04-19 10:32] LABS: ABSOLUTE EOSINOPHILS # (AUTO) 0.1 10^3/uL (0.0-0.6); ABSOLUTE LYMPHOCYTES (AUTO) 1.5 10^3/uL (0.5-4.7); ABSOLUTE MONOCYTES (AUTO) 0.4 10^3/uL (0.1-1.4); ABSOLUTE NEUT (AUTO) 2.4 10^3/uL (1.7-8.2); BASOPHILS % (AUTO) 0.4 % (0-2); EOSINOPHILS % (AUTO) 1.4 % (0-6); HEMATOCRIT 43.7 % (36.0-47.0); HEMOGLOBIN 14.8 g/dL (12.0-15.5); LYMPHOCYTES % (AUTO) 34.2 % (13-45); MEAN CORPUSCULAR HGB CONC 33.8 g/dL (32.0-36.0); MEAN CORPUSCULAR VOLUME 92 fl (80-97); MONOCYTES % (AUTO) 8.3 % (3-13); PLATELET COUNT 239 10^3/uL (150-450); RED BLOOD COUNT 4.77 10^6/uL (3.72-5.28); RED CELL DISTRIBUTION WIDTH 13.1 % (11.5-14.0); SEGMENTED NEUTROPHILS % (AUTO) 55.7 % (42-78); TOTAL CELLS COUNTED % (AUTO) 100 %; WHITE BLOOD COUNT 4.4 10^3/uL (4.0-10.5)
[2019-04-19 11:06] LABS: ALBUMIN 4.4 g/dL (3.5-5.0); ALKALINE PHOSPHATASE 64 U/L (38-126); ANION GAP 7 (5-19); ASPARTATE AMINO TRANSFERASE 21 U/L (14-36); BILIRUBIN,TOTAL 0.8 mg/dL (0.2-1.3); BLOOD UREA NITROGEN 13 mg/dL (7-20); CALCIUM 9.1 mg/dL (8.4-10.2); CARBON DIOXIDE 26 mmol/L (22-30); CHLORIDE 107 mmol/L (98-107); CHOLESTEROL 145.06 mg/dL (0-200); GLUCOSE 84 mg/dL (75-110); POTASSIUM 4.9 mmol/L (3.6-5.0); TOTAL PROTEIN 7.4 g/dL (6.3-8.2); TRIGLYCERIDES 58 mg/dL (<150)
[2019-04-19 11:17] LABS: DIRECT LDL 100 mg/dL (<100)
== END ==
LOC: CCC 09:25
DX: Z00.00 Encounter for general adult medical examination without abnormal findings (principal)
CPT/HCPCS: 36415; 80053; 80061; 83036; 84443; 85025

== ENCOUNTER 2019-05-12 10:18 | Emergency (ER) | payer OTHER ==
--- NOTE | 2019-05-12 10:57 | ER Document Report ---
HPI - HPI Time Seen by Provider: 05/12/19 10:49 Pain Level: 0 Notes: Patient is a 28-year-old female with history of asthma who presents complaint nasal congestion/discharge, sore throat, dry cough over the past 5 to 6 days. She is able to eat and drink without difficulty. She is urinating normally and having normal bowel movements. Denies drug allergies. Patient does admit to smoking cigarettes. Denies any headache, fever, neck pain, chest pain, palpitations, syncope, shortness of breath, wheeze, dyspnea, abdominal pain, nausea/vomiting/diarrhea, urinary retention, dysuria, hematuria, or rash. - ROS Systems Reviewed and Negative: Yes All other systems reviewed and negative - CONSTITUTIONAL Constitutional: DENIES: Fever, Chills - EENT EENT: REPORTS: Sore Throat. DENIES: Ear Pain, Eye problems - RESPIRATORY Respiratory: REPORTS: Coughing - REPRODUCTIVE LMP: DEPO Reproductive: DENIES: : Past Medical History - Social History Smoking Status: Current Every Day Smoker Chew tobacco use (# tins/day): No Frequency of alcohol use: Social Drug Abuse: Marijuana Family History: Reviewed & Not Pertinent Patient has suicidal ideation: No Patient has homicidal ideation: No - Past Medical History Cardiac Medical History: Denies: Hx Hypertension, Hx Heart Murmur Pulmonary Medical History: Reports: Hx Asthma Neurological Medical History: Denies: Hx Cerebrovascular Accident, Hx Seizures Renal/ Medical History: Reports: Hx Kidney Stones. Denies: Hx Peritoneal Dialysis Musculoskeletal Medical History: Reports Hx Musculoskeletal Trauma Psychiatric Medical History: Reports: Hx Bipolar Disorder Traumatic Medical History: Reports: Hx Fractures - Left fourth toe Past Surgical History: Denies: Hx Abdominal Surgery - Immunizations Immunizations up to date: No Vertical Provider Document - CONSTITUTIONAL Agree With Documented VS: Yes Notes: PHYSICAL EXAMINATION: GENERAL: Well-appearing, well-nourished and in no acute distress. A&Ox4. Answers questions appropriately. Moves comfortably w/o notable distress HEAD: Atraumatic, normocephalic. EYES: Pupils equal round and reactive to light, extraocular movements intact, sclera anicteric, conjunctiva are normal. ENT: Nares patent and with clear discharge. oropharynx mild erythema without exudates. 1+ tonsilar hypertrophy with mild erythema no exudate. No palatine shift. Uvula midline. No tongue protrusion. No drooling, hoarseness, or airway compromise. Moist mucous membranes. No sinus tenderness. NECK: Normal range of motion, supple without lymphadenopathy. No rigidity/meningismus. LUNGS: Breath sounds clear to auscultation bilaterally and equal. No wheezes rales or rhonchi. No retractions HEART: Regular rate and rhythm without murmurs, rubs, gallops. ABDOMEN: Soft, nontender, nondistended abdomen. No guarding, no rebound. Normal bowel sounds present. No CVA tenderness bilaterally. NEUROLOGICAL: Normal speech, normal gait. PSYCH: Normal mood, normal affect. SKIN: Warm, Dry, normal turgor, no rashes or lesions noted. - INFECTION CONTROL TRAVEL OUTSIDE OF THE [place] IN LAST 30 DAYS: No Course - Re-evaluation Re-evalutation: 05/12/19 Patient is an afebrile, well-hydrated, 28-year-old female who presents to the emergency department with an acute URI/pharyngitis, suspect viral. Vitals are acceptable without significant tachycardia, tachypnea, or hypoxia. PE is ot herwise unremarkable. She is nontoxic-appearing and is tolerating p.o. without difficulty. Lungs are clear to auscultation bilaterally. CXR unremarkable. Rapid strep was negative with a throat culture pending. No further labs or imaging warranted at this time. Low suspicion for any meningitis, sepsis, peritonsillar/pharyngeal abscess, respiratory compromise, Capo's, or other emergent systemic condition at this time. Patient is aware this condition can change from initial presentation and she needs to monitor symptoms closely. Conservative measures otherwise for symptoms. Recheck with your PCM in 3-5 days. Return to the ED with any worsening/concerning symptoms otherwise as reviewed in discharge. Patient is in agreement. - Vital Signs Vital signs: Temp Pulse Resp BP Pulse Ox 98.4 F 91 18 103/69 99 05/12/19 10:52 05/12/19 10:21 05/12/19 10:21 05/12/19 10:21 05/12/19 10:21 Discharge - Discharge Clinical Impression: Acute URI, Sore throat Condition: Stable Disposition: HOME, SELF-CARE Instructions: Sore Throat ([facility]), Upper Respiratory Illness ([facility]) Additional Instructions: Maintain adequate fluid intake Take meds as directed Salt water gargles, throat sprays, mouthwash rinse, peroxide gargles tylenol/ibuprofen as needed over the counter cold medication as needed for symptoms F/u: with your PCM in 3-5 days for a recheck Consider consult with ENT for ongoing/worsening symptoms Return to the ED with any fever, worsening pain, chest pain, neck pain/stiffness, shortness of breath, cough, drooling, trouble swallowing/breathing, abdominal pain, n/v/d, rash, or worsening/concerning symptoms otherwise. Prescriptions: Prednisone [Deltasone 10 mg Tablet] 10 mg PO ASDIR PRN #21 tablet PRN Reason: Referrals: [facility] [Primary Care Provider] - Follow up as needed
--- NOTE | 2019-05-12 12:02 | RADIOLOGY REPORT (SQ) ---
EXAM DESCRIPTION: CHEST 2 VIEWS COMPLETED DATE/TIME: 05/12/2019 11:46 am REASON FOR STUDY: cough COMPARISON: 11/04/2017. EXAM PARAMETERS: NUMBER OF VIEWS: two views TECHNIQUE: Digital Frontal and Lateral radiographic views of the chest acquired. RADIATION DOSE: NA LIMITATIONS: none FINDINGS: LUNGS AND PLEURA: No opacities, masses or pneumothorax. No pleural effusion. MEDIASTINUM AND HILAR STRUCTURES: No masses or contour abnormalities. HEART AND VASCULAR STRUCTURES: Heart normal size. No evidence for failure. BONES: No acute findings. HARDWARE: None in the chest. OTHER: No other significant finding. IMPRESSION: NO ACUTE RADIOGRAPHIC FINDING IN THE CHEST. TECHNICAL DOCUMENTATION: JOB ID: [id number] 2010 [employer]- All Rights Reserved Reading location - IP/workstation name: [email or web address]
[2019-05-12 12:27] VITALS: BP 100/60
== END 2019-05-12 12:24 | disposition home or self-care (01) ==
LOC: ER 10:18
DX: J06.9 Acute upper respiratory infection, unspecified (principal); R09.81 Nasal congestion; R09.89 Other specified symptoms and signs involving the circulatory and respiratory systems; J02.9 Acute pharyngitis, unspecified; J35.1 Hypertrophy of tonsils; R05 Cough; J45.909 Unspecified asthma, uncomplicated; F17.210 Nicotine dependence, cigarettes, uncomplicated; F12.10 Cannabis abuse, uncomplicated
CPT/HCPCS: 71046; 87070; 87077; 87880; 99283

== ENCOUNTER 2019-06-05 21:45 | Emergency (ER) | payer OTHER ==
[2019-06-05] MEDS ORDERED: IBUPROFEN 800 MG TABLET PO ONE (21:56)
--- NOTE | 2019-06-05 21:58 | ER Document Report ---
ED Medical Screen (RME) - General Chief Complaint: Hand Injury Stated Complaint: RIGHT RINGER FINGER LACERATION Time Seen by Provider: 06/05/19 21:54 Mode of Arrival: Wheelchair Notes: Patient states she closed her right hand in a car door prior to arrival. Patient with right fourth finger and fifth finger pain. Patient is right-hand dominant. Patient reports tetanus immunization is currently up-to-date. Patient hyperventilating in the triage area and very anxious. Patient states that she has had some numbness and tingling to her arm. I have greeted and performed a rapid initial assessment of this patient. A comprehensive ED assessment and evaluation of the patient, analysis of test results and completion of the medical decision making process will be conducted by additional ED providers. TRAVEL OUTSIDE OF THE [place] IN LAST 30 DAYS: No - Related Data Allergies/Adverse Reactions: No Known Allergies Allergy (Verified 05/12/19 10:47) Past Medical History - Past Medical History Cardiac Medical History: Denies: Hx Hypertension, Hx Heart Murmur Pulmonary Medical History: Reports: Hx Asthma Neurological Medical History: Denies: Hx Cerebrovascular Accident, Hx Seizures Renal/ Medical History: Reports: Hx Kidney Stones. Denies: Hx Peritoneal Dialysis Musculoskeltal Medical History: Reports Hx Musculoskeletal Trauma Psychiatric Medical History: Reports: Hx Bipolar Disorder Traumatic Medical History: Reports: Hx Fractures - Left fourth toe Past Surgical History: Denies: Hx Abdominal Surgery - Immunizations Immunizations up to date: No Physical Exam - Vital signs Vitals: Temp Pulse Resp BP Pulse Ox 98.1 F 85 24 H 138/92 H 99 06/05/19 21:52 06/05/19 21:52 06/05/19 21:52 06/05/19 21:52 06/05/19 21:52 - General General appearance: Alert, Anxious Notes: Tenderness to the right fourth and fifth finger, small abrasion along nail margin of right fourth finger Course - Vital Signs Vital signs: Temp Pulse Resp BP Pulse Ox 98.1 F 85 24 H 138/92 H 99 06/05/19 21:52 06/05/19 21:52 06/05/19 21:52 06/05/19 21:52 06/05/19 21:52
--- NOTE | 2019-06-05 22:25 | RADIOLOGY REPORT (SQ) ---
EXAM DESCRIPTION: XR HAND 3 OR MORE VIEWS COMPLETED DATE/TME: 06/05/2019 21:56 CLINICAL INDICATION: 28-year-old female with crush injury to the RIGHT fourth and fifth fingers. TECHNIQUE: Three views RIGHT hand were obtained in AP, lateral and oblique projections COMPARISON: None. FINDINGS: There is no fracture or dislocation. The joint spaces are preserved. No soft tissue abnormalities are seen. Nonspecific slight shortening of the fourth metacarpal. IMPRESSION: No acute radiographic abnormality.
[2019-06-05] MEDS ORDERED: OXYCODONE-ACETAMINOPHEN 5-325 MG TABLET PO ONE (22:31)
[2019-06-05] MEDS ORDERED: PROMETHAZINE HCL 25 MG TABLET PO ONE (22:31)
--- NOTE | 2019-06-05 22:34 | ER Document Report ---
HPI - HPI Time Seen by Provider: 06/05/19 21:54 Pain Level: 5 Context: Patient is a 28-year-old female that comes emergency department for chief complaint of injury to the right hand at the fourth and fifth fingers. She states that she accidentally closed her car door on her 2 fingers. This did cause a tiny laceration over the fourth finger cuticle with a small amount of bleeding. She reports severe pain in the fingers. She denies any other injuries. She reports her tetanus is up-to-date within 5 years. She denies . - REPRODUCTIVE Reproductive: DENIES: : Past Medical History - General Information source: Patient - Social History Smoking Status: Current Every Day Smoker Frequency of alcohol use: None Lives with: Family Family History: Reviewed & Not Pertinent Patient has suicidal ideation: No Patient has homicidal ideation: No - Past Medical History Cardiac Medical History: Denies: Hx Hypertension, Hx Heart Murmur Pulmonary Medical History: Reports: Hx Asthma Neurological Medical History: Denies: Hx Cerebrovascular Accident, Hx Seizures Renal/ Medical History: Reports: Hx Kidney Stones. Denies: Hx Peritoneal Dialysis Musculoskeletal Medical History: Reports Hx Musculoskeletal Trauma Psychiatric Medical History: Reports: Hx Bipolar Disorder Traumatic Medical History: Reports: Hx Fractures - Left fourth toe Past Surgical History: Denies: Hx Abdominal Surgery - Immunizations Immunizations up to date: No Vertical Provider Document - CONSTITUTIONAL General Appearance: WD/WN, No Apparent Distress - Patient appears to have been recently crying but she is in no distress on my evaluation - INFECTION CONTROL TRAVEL OUTSIDE OF THE [place] IN LAST 30 DAYS: No - HEENT HEENT: Atraumatic, Normal ENT Exam, Normocephalic - NECK Neck: Normal Inspection - RESPIRATORY Respiratory: Breath Sounds Normal, No Respiratory Distress - CARDIOVASCULAR Cardiovascular: Regular Rate, Regular Rhythm - GI/ABDOMEN Gastrointestinal: Abdomen Soft, Abdomen Non-Tender - BACK Back: Normal Inspection - MUSCULOSKELETAL/EXTREMETIES Musculoskeletal/Extremeties: MAEW, FROM, Tender - There is very faint soft tissue swelling over the dorsal aspect of the right fourth digit, there is a tiny very superficial laceration that is less than 0.25 cm extending from the cuticle and posteriorly on the dorsal finger. This is already approximated and closing. There is normal strength and resistance against flexion extension and all fingers. Normal capillary refill and sensation in all fingers. No signs of trauma or concerning findings otherwise. No snuffbox tenderness. - NEURO Level of Consciousness: Awake, Alert, Appropriate Motor/Sensory: No Motor Deficit, No Sensory Deficit - DERM Integumentary: Warm, Dry, No Rash Course - Re-evaluation Re-evalutation: Patient has a very tiny superficial laceration that is almost just an abrasion over the right dorsal fourth digit, this does not require closure, this was simply cleaned and dressed with bacitracin. Patient was provided with icing for this. No concerning deficits or signs of significant injury. X-rays negative. Patient was treated for pain here and she did calm down completely. I discussed results. Patient was very reassured by this. Discussed care, follow-up, return precautions. Patient states understanding and agreement. - Vital Signs Vital signs: Temp Pulse Resp BP Pulse Ox 98.1 F 85 24 H 138/92 H 99 06/05/19 21:52 06/05/19 21:52 06/05/19 21:52 06/05/19 21:52 06/05/19 21:52 Discharge - Discharge Clinical Impression: Right hand pain Finger injury Qualifiers: Encounter type: initial encounter Laterality: right Qualified Code(s): S69.91XA - Unspecified injury of right wrist, hand and finger(s), initial encounter Finger laceration Qualifiers: Encounter type: initial encounter Finger: ring finger Damage to nail status: without damage Foreign body presence: without foreign body Laterality: right Qualified Code(s): S61.214A - Laceration without foreign body of right ring finger without damage to nail, initial encounter Condition: Stable Disposition: HOME, SELF-CARE Additional Instructions: The x-ray does not show any fractures or concerning findings. Your evaluation shows some soft tissue swelling from the injury, this gradually resolves with time. Recommend icing the fingers several times a day for the 1-2 days, keep clean antibiotic dressing and clean the area over the right ring finger daily to avoid infection. Take anti-inflammatories as prescribed. Symptoms should simply resolve with time. Follow-up with primary care. Return for any concerning symptoms including severe worsening swelling or pain, developing redness, discolored drainage, or any other concerning symptoms. Prescriptions: Ibuprofen [Motrin 600 mg Tablet] 600 mg PO Q6HP PRN #30 tablet PRN Reason: Forms: Return to Work
[2019-06-05 23:11] VITALS: BP 135/81
== END 2019-06-05 23:05 | disposition home or self-care (01) ==
LOC: ER 21:45
DX: S61.214A Laceration without foreign body of right ring finger without damage to nail, initial encounter (principal); M79.641 Pain in right hand; W23.0XXA Caught, crushed, jammed, or pinched between moving objects, initial encounter; F17.200 Nicotine dependence, unspecified, uncomplicated; J45.909 Unspecified asthma, uncomplicated
CPT/HCPCS: 99283

== ENCOUNTER 2019-06-06 15:12 | Emergency (ER) | payer OTHER ==
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
[2019-06-06] MEDS ORDERED: ONDANSETRON 4 MG TAB.RAPDIS PO ONE (16:03)
[2019-06-06] MEDS ORDERED: HYDROCODONE/ACETAMINOPHEN 10-325 MG TABLET PO ONE (16:03)
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
[2019-06-06 17:57] VITALS: BP 124/74
== END 2019-06-06 17:58 | disposition home or self-care (01) ==
LOC: ER 15:12
DX: S00.83XA Contusion of other part of head, initial encounter (principal); S80.12XA Contusion of left lower leg, initial encounter; S20.212A Contusion of left front wall of thorax, initial encounter; S70.12XA Contusion of left thigh, initial encounter; Y00.XXXA Assault by blunt object, initial encounter; Y08.89XA Assault by other specified means, initial encounter; Z79.3 Long term (current) use of hormonal contraceptives; F17.200 Nicotine dependence, unspecified, uncomplicated; J45.909 Unspecified asthma, uncomplicated
CPT/HCPCS: 99284; 73552; 71101; 70450; 70486; 70490; S0119

== ENCOUNTER 2019-06-27 12:28 | Emergency (ER) | payer OTHER ==
[2019-06-27 12:33] VITALS: BP 134/79
[2019-06-27] MEDS ORDERED: HYDROCODONE/ACETAMINOPHEN 5-325 MG TABLET PO ONE (12:41)
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
--- NOTE | 2019-06-27 13:26 | ER Document Report ---
HPI - HPI Time Seen by Provider: 06/27/19 12:38 Pain Level: 3 Notes: 28-year-old female patient presented to the emergency department chief complaint of left anterior rib pain. Patient reports she was diagnosed with a contusion to this area on 06/06/2019. She states that she thought the pain would be gone by now. She reports increased pain when she takes deep breath. Denies any fevers. - CARDIOVASCULAR Cardiovascular: REPORTS: Chest pain - L rib pain - REPRODUCTIVE Reproductive: DENIES: : Past Medical History - General Information source: Patient - Social History Smoking Status: Current Every Day Smoker Chew tobacco use (# tins/day): No Frequency of alcohol use: None Drug Abuse: None Family History: Reviewed & Not Pertinent Patient has suicidal ideation: No Patient has homicidal ideation: No - Past Medical History Cardiac Medical History: Denies: Hx Hypertension, Hx Heart Murmur Pulmonary Medical History: Reports: Hx Asthma Neurological Medical History: Denies: Hx Cerebrovascular Accident, Hx Seizures Renal/ Medical History: Reports: Hx Kidney Stones. Denies: Hx Peritoneal Dialysis Musculoskeletal Medical History: Reports Hx Musculoskeletal Trauma Psychiatric Medical History: Reports: Hx Bipolar Disorder Traumatic Medical History: Reports: Hx Fractures - Left fourth toe Past Surgical History: Denies: Hx Abdominal Surgery - Immunizations Immunizations up to date: No Vertical Provider Document - CONSTITUTIONAL Notes: PHYSICAL EXAMINATION: GENERAL: Well-appearing, well-nourished and in no acute distress. HEAD: Atraumatic, normocephalic. EYES: Pupils equal round extraocular movements intact, conjunctiva are normal. ENT: Nares patent NECK: Normal range of motion LUNGS: No respiratory distress, lung sounds clear and equal bilaterally. Abdomen: Abdomen soft, nontender. Musculoskeletal: Normal range of motion, tenderness to palpation to left anterior ribs, no crepitus or deformity, no ecchymosis, erythema or any other abnormality. NEUROLOGICAL: Normal speech, normal gait. PSYCH: Normal mood, normal affect. SKIN: Warm, Dry, normal turgor, no rashes or lesions noted. - INFECTION CONTROL TRAVEL OUTSIDE OF THE [place] IN LAST 30 DAYS: No Course - Re-evaluation Re-evalutation: Patient with likely rib contusion. Patient educated that this may take 4 to 6 weeks to fully heal. Patient given incentive spirometer and educated on its use. Patient verbalizes understanding. Ribs w/Chest X-Ray 04/15/20 12:41 IMPRESSION: NO PNEUMOTHORAX. NO DISPLACED RIB FRACTURES. - Vital Signs Vital signs: Temp Pulse Resp BP Pulse Ox 99 F 81 18 134/79 H 100 06/27/19 12:32 06/27/19 12:32 06/27/19 12:32 06/27/19 12:32 06/27/19 12:32 Discharge - Discharge Clinical Impression: Rib contusion Qualifiers: Encounter type: initial encounter Laterality: left Qualified Code(s): S20.212A - Contusion of left front wall of thorax, initial encounter Condition: Stable Disposition: HOME, SELF-CARE Additional Instructions: Rib Contusion You have been diagnosed as having bruised ribs. It will usually take a few weeks for these injured ribs to heal. You should cough or take a deep breath at least every hour or two to prevent lung complications. You should not engage in any strenuous physical activity until released by your physician. The usual rule is "if it hurts, don't do it." Return if you develop any of the following: (1) Fever or chills. (2) Persistent cough, coughing up blood, or shortness of breath. (3) Increasing pain. (4) Weakness, lightheadedness, or fainting. Please take ibuprofen 600 mg every 6 hours. Apply heat to the area. I have given you a work note for the next 2 days off. Forms: Return to Work
== END 2019-06-27 13:34 | disposition home or self-care (01) ==
LOC: ER 12:28
DX: S20.212D Contusion of left front wall of thorax, subsequent encounter (principal); R07.81 Pleurodynia; X58.XXXD Exposure to other specified factors, subsequent encounter; F17.200 Nicotine dependence, unspecified, uncomplicated
CPT/HCPCS: 99283

== ENCOUNTER 2020-01-20 11:13 | Emergency (ER) | payer SELFPAY ==
[2020-01-20] MEDS ORDERED: AZITHROMYCIN 250 MG TABLET PO ONE (11:39)
[2020-01-20] MEDS ORDERED: LIDOCAINE 1% INJ-PF (10 MG/ML) 30 ML SDV IM ONE (11:39)
[2020-01-20] MEDS ORDERED: CEFTRIAXONE INJ 250 MG VIAL IM ONE (11:39)
--- NOTE | 2020-01-20 11:41 | ER Document Report ---
ED Medical Screen (RME) - General Chief Complaint: Pelvic Problem Stated Complaint: PELVIC PROBLEM Time Seen by Provider: 01/20/20 11:32 Mode of Arrival: Ambulatory Information source: Patient Notes: 29-year-old female patient presents emergency department with concern for possible STD exposure. Patient reports one of her 2 sexual partners told her that he tested positive for chlamydia. Patient reports that she has a slightly abnormal discharge. She is requesting STD testing and empiric treatment. She is also concerned she may be as she has been having fatigue, nausea and heartburn which she states are all signs of for her. She currently takes the Depo-Provera shot. Patient very anxious, tearful, crying in triage stating that she is very embarrassed. Patient does report a personal history of having positive chlamydia in the past. I have greeted and performed a rapid initial assessment of this patient. A comprehensive ED assessment and evaluation of the patient, analysis of test results and completion of the medical decision making process will be conducted by additional ED providers. I have specifically instructed the patient or family members with the patient to immediately return to any nursing staff should anything change in the patient's condition or with their chief complaint. TRAVEL OUTSIDE OF THE [place] IN LAST 30 DAYS: No - Related Data Allergies/Adverse Reactions: No Known Allergies Allergy (Verified 06/06/19 15:28) Past Medical History - Past Medical History Cardiac Medical History: Denies: Hx Hypertension, Hx Heart Murmur Pulmonary Medical History: Reports: Hx Asthma Neurological Medical History: Denies: Hx Cerebrovascular Accident, Hx Seizures Renal/ Medical History: Reports: Hx Kidney Stones. Denies: Hx Peritoneal Dialysis Musculoskeltal Medical History: Reports Hx Musculoskeletal Trauma Psychiatric Medical History: Reports: Hx Bipolar Disorder Traumatic Medical History: Reports: Hx Fractures - Left fourth toe Past Surgical History: Denies: Hx Abdominal Surgery - Immunizations Immunizations up to date: No Physical Exam - Vital signs Vitals: Temp Pulse Resp BP Pulse Ox 98.8 F 103 H 20 144/89 H 100 01/20/20 11:20 01/20/20 11:20 01/20/20 11:20 01/20/20 11:20 01/20/20 11:20 Course - Vital Signs Vital signs: Temp Pulse Resp BP Pulse Ox 98.8 F 103 H 20 144/89 H 100 01/20/20 11:20 01/20/20 11:20 01/20/20 11:20 01/20/20 11:20 01/20/20 11:20
[2020-01-20 12:34] LABS: APPEARANCE,URINE CLOUDY; BILIRUBIN,URINE NEGATIVE (NEGATIVE); COLOR,URINE AMBER; GLUCOSE, URINE NEGATIVE (NEGATIVE); KETONES,URINE NEGATIVE (NEGATIVE); LEUKOCYTE ESTERASE,URINE LARGE (NEGATIVE); NITRITE,URINE NEGATIVE (NEGATIVE); PROTEIN,URINE 100 mg/dL (NEGATIVE); URINE SPECIFIC GRAVITY 1.029
[2020-01-20 13:10] LABS: BACTERIA (WET MOUNT) 4+ BACTERIA SEEN; EPITHELIALS (WET MOUNT) 4+ EPITHELIALS SEEN; RBCS (WET MOUNT) RARE RBCS SEEN; T.VAGINALIS (WET MOUNT) NO TRICHOMONAS SEEN; WBCS (WET MOUNT) 1+ WBCS SEEN; YEAST (WET MOUNT) NO YEAST SEEN
--- NOTE | 2020-01-20 14:34 | ER Document Report ---
ED GI/ - General Chief Complaint: STD Exposure Stated Complaint: PELVIC PROBLEM Time Seen by Provider: 01/20/20 11:32 Mode of Arrival: Ambulatory Notes: This 29-year-old woman presents to the emergency department with a complaint that she was contacted by her recent sexual partner to tell her that he has tested positive for chlamydia. She presents to the emergency department states that she is having no symptoms, however, she would like to be tested and treated. Patient denies a history of STDs in the past. However she has been with 2 sexual partners and not using condoms. TRAVEL OUTSIDE OF THE [place] IN LAST 30 DAYS: No - Related Data Allergies/Adverse Reactions: No Known Allergies Allergy (Verified 06/06/19 15:28) Home Medications: abilify Past Medical History - General Information source: Patient - Social History Smoking Status: Current Every Day Smoker Chew tobacco use (# tins/day): No Frequency of alcohol use: Occasional Drug Abuse: None Family History: Reviewed & Not Pertinent - Past Medical History Cardiac Medical History: Denies: Hx Hypertension, Hx Heart Murmur Pulmonary Medical History: Reports: Hx Asthma Neurological Medical History: Denies: Hx Cerebrovascular Accident, Hx Seizures Renal/ Medical History: Reports: Hx Kidney Stones. Denies: Hx Peritoneal Dialysis Musculoskeletal Medical History: Reports Hx Musculoskeletal Trauma Psychiatric Medical History: Reports: Hx Bipolar Disorder Traumatic Medical History: Reports: Hx Fractures - Left fourth toe Past Surgical History: Denies: Hx Abdominal Surgery - Immunizations Immunizations up to date: No Review of Systems - Review of Systems Notes: Constitutional: Negative for fever. HENT: Negative for sore throat. Eyes: Negative for visual changes. Cardiovascular: Negative for chest pain. Respiratory: Negative for shortness of breath. Gastrointestinal: Negative for abdominal pain, vomiting or diarrhea. Genitourinary: See HPI MSK: Negative. Skin: Negative for rash. Neurological: Negative for headaches, weakness or numbness. 10 point ROS negative except as marked above and in HPI. Physical Exam - Vital signs Vitals: Temp Pulse Resp BP Pulse Ox 98.8 F 103 H 20 144/89 H 100 01/20/20 11:20 01/20/20 11:20 01/20/20 11:20 01/20/20 11:20 01/20/20 11:20 - Notes Notes: PHYSICAL EXAMINATION: Physical Exam: General: Well-nourished well-developed 29-year-old female in no acute distress HEENT: NC/AT, pupils equal round and reactive to light, MM moist,nares clear, oropharynx clear, airway patent Neck: supple, no adenopathy, no masses. Good range of motion Lungs: clear, no wheezing, no rales no rhonchi CVS: Regular rate and rhythm no murmur gallop or rub Abdomen: Soft, active, nontender, no masses, no hepatosplenomegaly Pelvic exam: Normal external genitalia, mucosa intact with no lesions, cervix nontender with manipulation, yellowish discharge noted in the posterior vaginal vault. No adnexal masses or tenderness noted. Ext: No edema, clubbing or cyanosis. Neuro: Alert and responsive, moving all 4 extremities on command, cranial nerves intact, no focal findings Skin: Intact no open lesions, no rash PSYCH: Normal mood, normal affect. Course - Re-evaluation Re-evalutation: 01/20/20 14:31 Testing is performed, patient is treated with Rocephin and Zithromax. Patient states that she is ready to go home and we can contact her with the results of the testing later. I have also encouraged her to follow-up with her primary care doctor or the health department as needed. She is also encouraged to contact any sexual partners regarding further evaluation and treatment. - Vital Signs Vital signs: Temp Pulse Resp BP Pulse Ox 98.8 F 103 H 20 144/89 H 100 01/20/20 11:20 01/20/20 11:20 01/20/20 11:20 01/20/20 11:20 01/20/20 11:20 - Laboratory Laboratory results interpreted by me: 01/20/20 11:53 Urine Protein 100 H Urine Blood MODERATE H Urine Urobilinogen 2.0 H Ur Leukocyte Esterase LARGE H 01/20/20 14:32 I have reviewed laboratory data and used this information for the treatment decisions regarding the patient. Discharge - Discharge Clinical Impression: Exposure to STD, Urinary tract infection Condition: Good Disposition: HOME, SELF-CARE Instructions: Cephalexin ([facility]), Urinary Tract Infection ([facility]) Additional Instructions: You were seen in the emergency department for concerns regarding an STD. You were treated for common STDs including chlamydia. The urine also reveals a urinary tract infection and you are given a prescription for cephalexin to take for a total of 10 days. Please take the medication as prescribed. If your symptoms are worsening or if you have other concerns you may return to the emergency department for further evaluation and treatment HOME CARE INSTRUCTIONS & INFORMATION: Thank you for choosing us for your medical needs. We hope you're satisfied with the care you received. After you leave, you must properly care for your problem and, at the same time, observe its progress. Any condition can change. Some illnesses can change rapidly over hours or days. If your condition worsens, return to the Emergency Department or see your physician promptly. ABOUT YOUR X-RAYS AND EKG'S: If you had an EKG or X-rays taken, they have been read by the Emergency Physician. The X-rays and EKG's will also be read by a Radiologist or Endodontic Assistant within 24 hours. If discrepancies are noted, you will be notified by telephone. Please be certain the ED has a correct telephone number & address where you can be reached. Also, realize that some fractures or abnormalities do not show up on initial X-rays. If your symptoms continue, see your physician. ABOUT YOUR LABORATORY TEST: If you had laboratory tests, the results have been reviewed by the Emergency Physician. Some test results (for example cultures) may not be available for several days. You will be contacted if any test result shows you need additional treatment. Please be certain the ED has a correct telephone number and address where you can be reached. ABOUT YOUR MEDICATIONS: You will receive instructions on how to take your medicine on the prescription label you receive. Additional information may be provided by the Pharmacy. If you have questions afterwards, call the ED for clarification or further instructions. Some prescribed medications may cause d rowsiness. Do not perform tasks such as driving a car or operating machinery without consulting your Pharmacist. If you feel you need a refill of pain medication, your condition will need re-evaluation. Please do not call for a refill of any medication. ABOUT YOUR SIGNATURE: Signature of this document acknowledges to followin. Understanding that you received emergency treatment and that you may be released before al medical problems are known or treated. Please be certain the ED has a correct phone number & address where you can be reached. 2. Acknowledgement that you will arrange for follow-up care as recommended. 3. Authorization for the Emergency Physician to provide information to your follow-up Physician in order to maximize your care. AT ANY TIME, IF YOUR SYMPTOMS CHANGE SIGNIFICANTLY OR WORSEN OR YOU DEVELOP NEW SYMPTOMS, RETURN TO THE EMERGENCY DEPARTMENT IMMEDIATELY FOR RE-EVALUATION. OUR GOAL IS TO PROVIDE EXCELLENT MEDICAL CARE! WE HOPE THAT WE HAVE MET YOUR EXPECTATIONS DURING YOUR EMERGENCY DEPARTMENT VISIT AND THAT YOU FEEL YOU HAVE RECEIVED EXCELLENT CARE! Prescriptions: Cephalexin Monohydrate [Keflex 500 mg Capsule] 500 mg PO Q8 10 Days #30 capsule
[2020-01-20 14:40] LABS: CHLAM PCR NOT DETECTED (NOT DETECT)
[2020-01-20 14:54] VITALS: BP 115/79
== END 2020-01-20 14:50 | disposition home or self-care (01) ==
LOC: ER 11:13
DX: Z20.2 Contact with and (suspected) exposure to infections with a predominantly sexual mode of transmission (principal); N39.0 Urinary tract infection, site not specified; N89.8 Other specified noninflammatory disorders of vagina; F17.200 Nicotine dependence, unspecified, uncomplicated; F31.9 Bipolar disorder, unspecified; J45.909 Unspecified asthma, uncomplicated; Z79.899 Other long term (current) drug therapy
CPT/HCPCS: 99284; 96372; 36415; 87210; 84703; 81001; 87491; 87591; J3490; J0696

== ENCOUNTER 2020-02-09 10:44 | Emergency (ER) | payer SELFPAY ==
[2020-02-09 10:55] VITALS: BP 114/63
--- NOTE | 2020-02-09 10:59 | ER Document Report ---
ED General - General Chief Complaint: Cough Stated Complaint: COUGH,SORE THROAT Time Seen by Provider: 02/09/20 10:59 TRAVEL OUTSIDE OF THE [place] IN LAST 30 DAYS: No - HPI Notes: 29-year-old female with a history of asthma presents to the emergency room today for complaints of cough, sore throat, stuffy nose wheezing that has become progressively worse over the last few days. Patient states she always gets this when it is a "change of season". Denies any chest pain shortness of breath nausea vomiting diarrhea. Denies any fevers or chills. Has not tried any [id number] medications. Last menstrual cycle was 2 weeks ago . denies fevers, chills, chest pain,palpitations, shortness of breath, dyspnea, nausea, vomiting, diarrhea, abdominal pain, hematuria,blurred vision, double vision, loss of vision, speech changes, LH, dizziness, syncope, headaches, neck pain, weakness, bowel or bladder dysfunction, saddle anesthesia, numbness or tingling in bilateral upper or lower extremities equally, muscle paralysis, weakness in bilateral upper or lower extremities equally or rash. - Related Data Allergies/Adverse Reactions: No Known Allergies Allergy (Verified 06/06/19 15:28) Past Medical History - General Information source: Patient - Social History Smoking Status: Unknown if Ever Smoked Family History: Reviewed & Not Pertinent - Past Medical History Cardiac Medical History: Denies: Hx Hypertension, Hx Heart Murmur Pulmonary Medical History: Reports: Hx Asthma Neurological Medical History: Denies: Hx Cerebrovascular Accident, Hx Seizures Renal/ Medical History: Reports: Hx Kidney Stones. Denies: Hx Peritoneal Dialysis Musculoskeletal Medical History: Reports Hx Musculoskeletal Trauma Psychiatric Medical History: Reports: Hx Bipolar Disorder Traumatic Medical History: Reports: Hx Fractures - Left fourth toe Past Surgical History: Denies: Hx Abdominal Surgery - Immunizations Immunizations up to date: No Review of Systems - Review of Systems Constitutional: No symptoms reported EENT: See HPI Cardiovascular: No symptoms reported Respiratory: No symptoms reported Gastrointestinal: No symptoms reported Genitourinary: No symptoms reported Female Genitourinary: No symptoms reported Musculoskeletal: No symptoms reported Skin: No symptoms reported Hematologic/Lymphatic: No symptoms reported Neurological/Psychological: No symptoms reported Physical Exam - Vital signs Vitals: Temp Pulse Resp BP Pulse Ox 98.4 F 82 18 114/63 100 02/09/20 10:55 02/09/20 10:55 02/09/20 10:55 02/09/20 10:55 02/09/20 10:55 - Notes Notes: MEDICATIONS: I agree with the patient medications as charted by the RN. ALLERGIES: I agree with the allergies as charted by the RN. PAST MEDICAL HISTORY/PAST SURGICAL HISTORY: Reviewed and agree as charted by RN. SOCIAL HISTORY: Reviewed and agree as charted by RN. FAMILY HISTORY: No significant familial comorbid conditions directly related to patient complaint EXAM: Reviewed vital signs as charted by RN. PHYSICAL EXAMINATION: reviewed vital signs by RN GENERAL: Well-appearing, well-nourished and in no acute distress. HEAD: Atraumatic, normocephalic. EYES: Pupils equal round and reactive to light, extraocular movements intact, conjunctiva are normal. ENT: Nares patent, oropharynx clear without exudates. Moist mucous membranes. NECK: Normal range of motion, supple without lymphadenopathy LUNGS: Breath sounds clear to auscultation bilaterally and equal. No wheezes rales or rhonchi. HEART: Regular rate and rhythm without murmurs ABDOMEN: Soft, nontender, nondistended abdomen. No guarding, no rebound. No masses appreciated. Unable to finish exams patient decided to leave AGAINST MEDICAL ADVICE Course - Re-evaluation Re-evalutation: 02/09/20 11:14 Afebrile vital stable no distress. Nurses notes reviewed. Patient decided to leave against medical advise because there is not a rapid Covid test in the emergency room. Discussed with patient that we do need to get a chest x-ray, I do need to listen to her lungs however since we do not have a for Covid here she stated that she is not "wasting time here". after performing a Medical Screening Examination, I spoke with the patient at length in regards to leaving the hospital against medical advice. I do not believe the patient should leave but the patient is alert oriented x4, understands the risks and benefits of staying and leaving including disability and . Pt understands that he can return at any time for further care and is more than welcome to do so. Pt verbalizes this understanding. - Vital Signs Vital signs: Temp Pulse Resp BP Pulse Ox 98.4 F 82 18 114/63 100 02/09/20 10:55 02/09/20 10:55 02/09/20 10:55 02/09/20 10:55 02/09/20 10:55 Discharge - Discharge Clinical Impression: URI (upper respiratory infection) Condition: Stable Disposition: AGAINST MEDICAL ADVICE Instructions: COVID-19 Guidance for Persons Under Investigation, Viral Syndrome ([facility]), Upper Respiratory Illness ([facility]) Referrals: ZANE FERGUSON MD [ACTIVE STAFF] - Follow up as needed
== END 2020-02-09 11:16 | disposition left against medical advice (07) ==
LOC: ER 10:44
DX: J06.9 Acute upper respiratory infection, unspecified (principal); Z87.442 Personal history of urinary calculi
CPT/HCPCS: 99282

== ENCOUNTER 2020-03-23 02:40 | Emergency (ER) | payer SELFPAY ==
[2020-03-23] MEDS ORDERED: TETRACAINE HCL 0.5% OPH SOLN 4 ML OD ONE (03:50)
[2020-03-23] MEDS ORDERED: LORAZEPAM INJ 2 MG/1 ML VIAL IV ONE (03:57)
[2020-03-23] MEDS ORDERED: HYDROMORPHONE HCL INJ/PF 2 MG/ML AMPULE IV ONE (03:58)
[2020-03-23] MEDS ORDERED: ONDANSETRON HCL INJ/PF 4 MG/2 ML SDV IV ONE (03:58)
[2020-03-23] MEDS ORDERED: LIDOCAINE 4% CREAM 5 GM TUBE TP ONE (03:59)
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
[2020-03-23] MEDS ORDERED: PREDNISOLONE ACETATE 1% OPH SUSP 5 ML OD ONE (06:59)
[2020-03-23] MEDS ORDERED: BRIMONIDINE TARTRATE 0.2% OPH SOLN 5 ML OD ONE (07:00)
[2020-03-23] MEDS ORDERED: KETOROLAC TROMETHAMINE INJ/PF 30 MG/1 ML SDV IV ONE (07:03)
[2020-03-23 08:43] VITALS: BP 116/55
== END 2020-03-23 08:43 | disposition home or self-care (01) ==
LOC: ER 02:40
DX: S00.11XA Contusion of right eyelid and periocular area, initial encounter (principal); S00.12XA Contusion of left eyelid and periocular area, initial encounter; S06.9X9A Unspecified intracranial injury with loss of consciousness of unspecified duration, initial encounter; H05.231 Hemorrhage of right orbit; H20.9 Unspecified iridocyclitis; Y04.2XXA Assault by strike against or bumped into by another person, initial encounter; Y92.59 Other trade areas as the place of occurrence of the external cause; F17.200 Nicotine dependence, unspecified, uncomplicated; J45.909 Unspecified asthma, uncomplicated
CPT/HCPCS: 99285; 96374; 96375; 70450; 70486; 72125; J1885; J1170; J2060; J3490 ×4; J2405